=== PATIENT | male | born 1935 | race Hispanic/Latino ===

== ENCOUNTER 2019-04-16 14:46 | Inpatient (IN) | payer OTHER ==
[~2019-04-16] VITALS: Ht 172.7 cm; Wt 69.0 kg
--- OUTSIDE RECORDS SUMMARY | 2019-04-16 14:47 | XMS REPORT | Clinical Summary ---
Author Author [facility] Organization [facility] Address Unknown Phone Unavailable Care Team Providers Care Correctional Nurse Name Role Phone Asked, None Given PCP Unavailable Allergies No Known Allergies Medications End Date Status Medication Sig Dispensed Refills Start Date Active atorvastatin (LIPITOR) 20 0 MG tablet 6 Active CONTOUR TEST STRIPS strip 0 test strips 6 Active TRUEPLUS LANCETS 28 gauge 0 misc 6 Active levothyroxine (SYNTHROID, 0 LEVOTHROID) 125 MCG 6 tablet Active lisinopril-hydrochlorothi 0 azide 6 (PRINZIDE,ZESTORETIC) 20-12.5 mg per tablet Active metFORMIN (GLUCOPHAGE) 0 500 MG tablet 6 Active tamsulosin (FLOMAX) 0.4 0 mg capsule,extended 6 release 24hr Active Problems Problem Noted Date 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 Last Filed Vital Signs Not on file Plan of Treatment Health Maintenance Due Date Last Done Comments SHINGLES VACCINES (#1) 11/26/1983 65+ PNEUMOCOCCAL VACCINE 1998 (1 of 2 - PCV13) INFLUENZA VACCINE 04/09/2019 Results Not on fileafter 04/15/2018 Insurance Type Payer Benefit Subscriber ID Effective Phone Address Plan / Dates Group HMO [employer] TEXAN[employer]US xxxxxxxxx 2010-P MCR resent Advance Directives Patient has advance care planning documents on file. For more information, lupillo e contact: Guanakito Tan [address] [place] [address]
--- OUTSIDE RECORDS SUMMARY | 2019-04-16 14:48 | XMS REPORT | Summary of Care ---
Author Author [facility] Organization [facility] Address Unknown Phone Unavailable Encounter KRYSTIN Agosto(DRAKE) [id number] Date(s): 02/14/17 - 02/16/17 [facility] [address] [place] [address]- [phone] Discharge Disposition: Home or Self Care Attending Physician: Geovanni Barnett MD Admitting Physician: Geovanni Barnett MD Vital Signs 1 2 3 Most recent to oldest [Reference Range]: 170.18 cm (02/15/17 6:12 AM) 170.18 cm (02/14/17 7:36 PM) Height 71.045 kg (02/15/17 6:15 AM) Current Weight 97.9 DegF (02/16/17 11:24 AM) 98.4 DegF (02/16/17 7:30 AM) 98.5 DegF (02/16/17 4:00 AM) Temperature Oral [96.4-99.1 DegF] 149/69 mmHg *HI* (02/16/17 12:49 PM) 157/80 mmHg *HI* (02/16/17 11:24 AM) 177/77 mmHg *HI* (02/16/17 7:30 AM) Blood Pressure [90-140/60-90 mmHg] 20 BRMIN (02/16/17 11:24 AM) 18 BRMIN (02/16/17 7:30 AM) 16 BRMIN (02/16/17 4:00 AM) Respiratory Rate [14-20 BRMIN] 101 bpm *HI* (02/16/17 12:49 PM) 94 bpm (02/16/17 11:24 AM) 90 bpm (02/16/17 7:30 AM) Peripheral Pulse Rate [60-100 bpm] 71.045 kg (02/15/17 6:12 AM) 71.364 kg (02/14/17 7:36 PM) Weight 24.53 m2 (02/15/17 6:12 AM) 24.64 m2 (02/14/17 7:36 PM) Body Mass Index Problem List Condition Effective Dates Status Health Status Informant Diabetes(Confirmed) Resolved HTN Resolved (hypertension)(Confi rmed) Hypothyroidism(Confi Resolved rmed) Allergies, Adverse Reactions, Alerts Substance Reaction Severity Status NKDA Active Medications acetaminophen 650 mg, 2 tab, Route: PO, Drug form: TAB, Q4H, Dosing Weight 71.045, kg, PRN Rudy n 1-3/Temp > 100.4 F, Start date: 02/15/17 8:55:00 CDT, Duration: 30 day, Stop date: 03/17/17 8:54:00 CDT Notes: Do not exceed 4 gm/day. (Same as: Tylenol) Start Date: 02/15/17 Stop Date: 02/16/17 Status: Discontinued atorvastatin 20 mg, 2 tab, Route: PO, Drug form: TAB, Bedtime, Dosing Weight 71.045, kg, Star t date: 02/15/17 21:00:00 CDT, Duration: 30 day, Stop date: 03/16/17 21:00:00 CD T Notes: (Same As: Lipitor) Start Date: 02/15/17 Stop Date: 02/16/17 Status: Discontinued Dextrose 50% Syringe 25 gm, 50 mL, Route: IVP, Drug Form: INJ, Dosing Weight 71.045, kg, PRN, PRN Blo od Glucose Results, Start date: 02/15/17 8:56:00 CDT, Duration: 30 day, Stop keke e: 03/17/17 8:55:00 CDT Start Date: 02/15/17 Stop Date: 02/16/17 Status: Discontinued Dextrose 50% Syringe 12.5 gm, 25 mL, Route: IVP, Drug Form: INJ, Dosing Weight 71.045, kg, PRN, PRN B lood Glucose Results, Start date: 02/15/17 8:56:00 CDT, Duration: 30 day, Stop d ate: 03/17/17 8:55:00 CDT Start Date: 02/15/17 Stop Date: 02/16/17 Status: Discontinued ferrous sulfate 325 mg, 1 tab, Route: PO, Drug form: ECTAB, Daily, Dosing Weight 71.045, kg, Sta rt date: 02/15/17 9:00:00 CDT, Duration: 30 day, Stop date: 03/16/17 9:00:00 CDT Notes: Give with food. "Do Not Crush" Start Date: 02/15/17 Stop Date: 02/16/17 Status: Discontinued Flomax 0.4 mg, 1 cap, Route: PO, Drug form: CAP, Daily, Dosing Weight 71.045, kg, Start date: 02/15/17 9:00:00 CDT, Duration: 30 day, Stop date: 03/16/17 9:00:00 CDT Notes: (Same As: Flomax) "Do Not Crush" Start Date: 02/15/17 Stop Date: 02/16/17 Status: Discontinued glucagon 1 mg, Route: IM, Drug form: PDR/INJ, PRN, Dosing Weight 71.045, kg, PRN Blood Gl ucose Results, Start date: 02/15/17 8:56:00 CDT, Duration: 30 day, Stop date: 8:55:00 CDT Start Date: 02/15/17 Stop Date: 02/16/17 Status: Discontinued heparin 5,000 unit, 1 mL, Route: SUB-Q, Drug form: INJ, Q8H, Dosing Weight 71.045, kg, S tart date: 02/15/17 16:00:00 CDT, Duration: 30 day, Stop date: 03/17/17 8:00:00 CDT Notes: porcine heparin Start Date: 02/15/17 Stop Date: 02/16/17 Status: Discontinued hydrALAZINE 10 mg, 0.5 mL, Route: IVP, Drug form: INJ, Q4H, Dosing Weight 71.045, kg, PRN El evated BP, if sbp > 160, Start date: 02/16/17 11:29:00 CDT, Duration: 30 day, Stop date: 03/18/17 11:28:00 CDT Notes: (Same as: Apresoline)Push over 5 minutes Start Date: 02/16/17 Stop Date: 02/16/17 Status: Discontinued hydrochlorothiazide-lisinopril 12.5 mg-20 mg oral tablet 1 tab, PO, Daily, # 30 tab, 0 Refill(s) Start Date: 02/15/17 Status: Ordered hydrochlorothiazide-lisinopril 12.5 mg-20 mg oral tablet 1 tab, Route: PO, Drug Form: TAB, Dosing Weight 71.045, kg, Daily, Start date: 0 02/15/17 9:00:00 CDT, Duration: 30 day, Stop date: 03/16/17 9:00:00 CDT Start Date: 02/15/17 Stop Date: 02/15/17 Status: Discontinued insulin aspart 3 unit, 0.03 mL, Route: SUB-Q, Drug form: SOLN, Bedtime, Dosing Weight 71.045, k g, PRN Blood Glucose Results, Start date: 02/15/17 8:56:00 CDT, Duration: 30 day , Stop date: 03/17/17 8:55:00 CDT Notes: Roll in palms of hands gently; Do not shake vigorously. (Same as: Orestes Kyle)"single patient use only"WASTE: F/P - Black; E - Municipal Trash Bin Stable f or 28 days at room temperature.Expires in days from Date Start Date: 02/15/17 Stop Date: 02/16/17 Status: Discontinued insulin aspart 2 unit, 0.02 mL, Route: SUB-Q, Drug form: SOLN, Bedtime, Dosing Weight 71.045, k g, PRN Blood Glucose Results, Start date: 02/15/17 8:56:00 CDT, Duration: 30 day , Stop date: 03/17/17 8:55:00 CDT Notes: Roll in palms of hands gently; Do not shake vigorously. (Same as: Orestes Kyle)"single patient use only"WASTE: F/P - Black; E - Municipal Trash Bin Stable f or 28 days at room temperature.Expires in days from Date Start Date: 02/15/17 Stop Date: 02/16/17 Status: Discontinued insulin aspart 1 unit, 0.01 mL, Route: SUB-Q, Drug form: SOLN, Bedtime, Dosing Weight 71.045, k g, PRN Blood Glucose Results, Start date: 02/15/17 8:56:00 CDT, Duration: 30 day , Stop date: 03/17/17 8:55:00 CDT Notes: Roll in palms of hands gently; Do not shake vigorously. (Same as: Orestes Kyle)"single patient use only"WASTE: F/P - Black; E - Municipal Trash Bin Stable f or 28 days at room temperature.Expires in days from Date Start Date: 02/15/17 Stop Date: 02/16/17 Status: Discontinued insulin aspart 4 unit, 0.04 mL, Route: SUB-Q, Drug form: SOLN, Bedtime, Dosing Weight 71.045, k g, PRN Blood Glucose Results, Start date: 02/15/17 8:56:00 CDT, Duration: 30 day , Stop date: 03/17/17 8:55:00 CDT Notes: Roll in palms of hands gently; Do not shake vigorously. (Same as: NovoPIPPA Kyle)"single patient use only"WASTE: F/P - Black; E - Municipal Trash Bin Stable f or 28 days at room temperature.Expires in days from Date Start Date: 02/15/17 Stop Date: 02/16/17 Status: Discontinued insulin aspart 6 unit, 0.06 mL, Route: SUB-Q, Drug form: SOLN, TID-Before Meals, Dosing Weight 71.045, kg, PRN Blood Glucose Results, Start date: 02/15/17 8:56:00 CDT, Duratio n: 30 day, Stop date: 03/17/17 8:55:00 CDT Notes: Roll in palms of hands gently; Do not shake vigorously. (Same as: Orestes Kyle)"single patient use only"WASTE: F/P - Black; E - Municipal Trash Bin Stable f or 28 days at room temperature.Expires in days from Date Start Date: 02/15/17 Stop Date: 02/16/17 Status: Discontinued insulin aspart 8 unit, 0.08 mL, Route: SUB-Q, Drug form: SOLN, TID-Before Meals, Dosing Weight 71.045, kg, PRN Blood Glucose Results, Start date: 02/15/17 8:56:00 CDT, Duratio n: 30 day, Stop date: 03/17/17 8:55:00 CDT Notes: Roll in palms of hands gently; Do not shake vigorously. (Same as: Orestes Kyle)"single patient use only"WASTE: F/P - Black; E - Municipal Trash Bin Stable f or 28 days at room temperature.Expires in days from Date Start Date: 02/15/17 Stop Date: 02/16/17 Status: Discontinued insulin aspart 10 unit, 0.1 mL, Route: SUB-Q, Drug form: SOLN, TID-Before Meals, Dosing Weight 71.045, kg, PRN Blood Glucose Results, Start date: 02/15/17 8:56:00 CDT, Duratio n: 30 day, Stop date: 03/17/17 8:55:00 CDT Notes: Roll in palms of hands gently; Do not shake vigorously. (Same as: Orestes Kyle)"single patient use only"WASTE: F/P - Black; E - Municipal Trash Bin Stable f or 28 days at room temperature.Expires in days from Date Start Date: 02/15/17 Stop Date: 02/16/17 Status: Discontinued insulin aspart 4 unit, 0.04 mL, Route: SUB-Q, Drug form: SOLN, TID-Before Meals, Dosing Weight 71.045, kg, PRN Blood Glucose Results, Start date: 02/15/17 8:56:00 CDT, Duratio n: 30 day, Stop date: 03/17/17 8:55:00 CDT Notes: Roll in palms of hands gently; Do not shake vigorously. (Same as: Orestes Kyle)"single patient use only"WASTE: F/P - Black; E - Municipal Trash Bin Stable f or 28 days at room temperature.Expires in days from Date Start Date: 02/15/17 Stop Date: 02/16/17 Status: Discontinued insulin aspart 2 unit, 0.02 mL, Route: SUB-Q, Drug form: SOLN, TID-Before Meals, Dosing Weight 71.045, kg, PRN Blood Glucose Results, Start date: 02/15/17 8:56:00 CDT, Duratio n: 30 day, Stop date: 03/17/17 8:55:00 CDT Notes: Roll in palms of hands gently; Do not shake vigorously. (Same as: Orestes yKle)"single patient use only"WASTE: F/P - Black; E - Municipal Trash Bin Stable f or 28 days at room temperature.Expires in days from Date Start Date: 02/15/17 Stop Date: 02/16/17 Status: Discontinued Levaquin 500 mg, Route: PO, Drug form: TAB, [id number], Dosing Weight 71.045, kg, Start date : 02/15/17 9:00:00 CDT, Duration: 14 day, Stop date: 02/28/17 9:00:00 CDT, ABX I ndication: Genital Tract Infection Start Date: 02/15/17 Stop Date: 02/15/17 Status: Discontinued Levaquin 750 mg, 150 mL, Route: IVPB, Drug form: SOLN, [id number], Dosing Weight 71.045, kg, Start date: 02/15/17 9:00:00 CDT, Duration: 14 day, Stop date: 02/25/17 12:00:00 CDT, ABX Indication: Skin/Soft Tissue Infection Notes: (Same as:Levaquin) Start Date: 02/15/17 Stop Date: 02/16/17 Status: Discontinued Levaquin 750 mg oral tablet 750 mg=1 tab, PO, Q24H, X 14 day, # 14 tab, 0 Refill(s) Start Date: 02/16/17 Stop Date: 03/02/17 Status: Ordered levothyroxine 125 microgram, 1 tab, Route: PO, Drug form: TAB, Daily, Dosing Weight 71.045, kg , Start date: 02/15/17 9:00:00 CDT, Duration: 30 day, Stop date: 03/17/17 6:30:0 0 CDT Notes: Take 1 hour before or 2 hours after meal; Enteral feeds may interefere wi th the absorption of this medication. (Same as:Levothroid) Start Date: 02/15/17 Stop Date: 02/16/17 Status: Discontinued levothyroxine 125 mcg (0.125 mg) oral tablet 125 microgram=1 tab, PO, Daily, # 30 tab, 0 Refill(s) Start Date: 02/15/17 Status: Ordered lisinopril 20 mg, 1 tab, Route: PO, Drug form: TAB, Daily, Dosing Weight 71.045, kg, Start date: 02/16/17 9:00:00 CDT, Duration: 30 day, Stop date: 03/17/17 9:00:00 CDT Notes: (Same as: Prinivil, Zestril) Start Date: 02/16/17 Stop Date: 02/16/17 Status: Discontinued lisinopril 20 mg, 4 tab, Route: PO, Drug form: TAB, Daily, Start date: 02/16/17 9:00:00 CDT , Duration: 30 day, Stop date: 03/17/17 9:00:00 CDT Notes: (Same as: Prinivil, Zestril) Start Date: 02/16/17 Stop Date: 02/15/17 Status: Canceled Motrin 800 mg, 1 tab, Route: PO, Drug form: TAB, Q8H, Dosing Weight 71.045, kg, PRN Rudy n Score 1-3, Start date: 02/15/17 8:55:00 CDT, Duration: 3 day, Stop date: 02/18 8:54:00 CDT Notes: (Same as: Motrin)"Do Not Crush" Take with food. Start Date: 02/15/17 Stop Date: 02/16/17 Status: Discontinued Motrin 600 mg oral tablet 600 mg=1 tab, PO, Q8H, PRN Pain, take with food, X 5 day, # 15 tab, 0 Refill(s) Start Date: 02/16/17 Stop Date: 02/21/17 Status: Ordered piperacillin-tazobactam + sodium chloride 0.9% INJ 100 mL 3.375 gm, Route: IVPB, ONCE, Dosing Weight 71.364, kg, Priority: STAT, Start keke e: 02/14/17 23:54:00 CDT, Duration: 1 doses or times, Stop date: 02/14/17 23:54: 00 CDT, ABX Indication: Skin/Soft Tissue Infection Notes: (Same as: Zosyn)Dosing based on Piperacillin component MEDICATION WA ELISEO Product Size: 3375 mgProduct Wasted: ___ mg Start Date: 02/14/17 Stop Date: 02/15/17 Status: Completed Saline Flush 0.9% 10 ml, Route: IVP, Drug Form: INJ, Dosing Weight 71.045, kg, PRN, PRN Line Flush , Start date: 02/15/17 8:55:00 CDT, Duration: 30 day, Stop date: 03/17/17 8:54:0 0 CDT Notes: Same as: BD Posiflush Sterile Start Date: 02/15/17 Stop Date: 02/16/17 Status: Discontinued Sodium Chloride 0.9% (Bolus) IV 1,000 mL, 1000 ml/hr, Infuse Over: 1 hr, Route: IV, 1,000, Drug form: INJ, ONCE, Priority: STAT, Dosing Weight 71.364 kg, Start date: 02/15/17 2:41:00 CDT, Dura tion: 1 doses or times, Stop date: 02/15/17 2:41:00 CDT Start Date: 02/15/17 Stop Date: 02/15/17 Status: Completed sodium chloride 0.9% 1000 ml INJ 1,000 mL 1,000 mL, Rate: 75 ml/hr, Infuse over: 13.3 hr, Route: IV, Dosing Weight 71.364 kg, Total Volume: 1,000, Priority: STAT, Start date: 02/15/17 4:47:00 CDT, Durat ion: 1 doses or times, Stop date: 02/15/17 18:04:00 CDT Start Date: 02/15/17 Stop Date: 02/15/17 Status: Completed sodium chloride 0.9% 1000 ml INJ 1,000 mL 1,000 mL, Rate: 75 ml/hr, Infuse over: 13.3 hr, Route: IV, Dosing Weight 71.045 kg, Total Volume: 1,000, Start date: 02/15/17 8:55:00 CDT, Duration: 30 day, Sto p date: 03/17/17 8:54:00 CDT Start Date: 02/15/17 Stop Date: 02/16/17 Status: Discontinued vancomycin + sodium chloride 0.9% INJ 250 mL 1,000 mg, Route: IVPB, ONCE, Dosing Weight 71.364, kg, Priority: STAT, Start keke e: 02/14/17 23:54:00 CDT, Duration: 1 doses or times, Stop date: 02/14/17 23:54: 00 CDT, ABX Indication: Skin/Soft Tissue Infection Notes: TIME CRITICAL MEDICATION(Same As: Vancocin)Infusion rate< 1000 mg: infuse over 1 [id number] - 1500 mg: infuse over 1.5 [id number] - 2000 mg: infuse over 2 hours> 2001 mg: infuse over 2.5 hours MEDICATION WASTE Product Size: 1000 mgProduct Wasted: ___ mg Start Date: 02/14/17 Stop Date: 02/15/17 Status: Completed Results ELECTROLYTES Most recent to 1 oldest [Reference Range]: Sodium Lvl [135-145 127 mEq/L mEq/L] *LOW* (02/15/17 1:21 AM) Potassium Lvl 4.3 mEq/L [3.5-5.1 mEq/L] (02/15/17 1:21 AM) Chloride Lvl [95-109 92 mEq/L mEq/L] *LOW* (02/15/17 1:21 AM) CO2 [24-32 mEq/L] 26 mEq/L (02/15/17 1:21 AM) AGAP [10.0-20.0 13.3 mEq/L mEq/L] (02/15/17 1:21 AM) CHEM PANEL Most recent to 1 oldest [Reference Range]: Creatinine Lvl 1.50 mg/dL [0.50-1.40 mg/dL] *HI* (02/15/17 1:21 AM) eGFR 42 mL/min/1.73m2 1 *NA* (02/15/17 1:21 AM) BUN [7-22 mg/dL] 25 mg/dL *HI* (02/15/17 1:21 AM) B/C Ratio [6-25] 17 (02/15/17 1:21 AM) Glucose Lvl [70-99 255 mg/dL mg/dL] *HI* (02/15/17 1:21 AM) Total Protein 7.8 g/dL [6.4-8.4 g/dL] (02/15/17 1:21 AM) Albumin Lvl [3.5-5.0 2.9 g/dL g/dL] *LOW* (02/15/17 1:21 AM) Globulin [2.7-4.2 4.9 g/dL g/dL] *HI* (02/15/17 1:21 AM) A/G Ratio [0.7-1.6] 0.6 *LOW* (02/15/17 1:21 AM) Calcium Lvl 8.9 mg/dL [8.5-10.5 mg/dL] (02/15/17 1:21 AM) ALT [0-65 unit/L] 9 unit/L (02/15/17 1:21 AM) AST [0-37 unit/L] 7 unit/L (02/15/17 1:21 AM) Alk Phos [39-136 114 unit/L unit/L] (02/15/17 1:21 AM) Bili Total [0.2-1.3 0.7 mg/dL mg/dL] (02/15/17 1:21 AM) Lactic Acid Lvl 1.1 mMol/L [0.5-2.2 mMol/L] (02/15/17 1:21 AM) 1Result Comment: The eGFR is calculated using the CKD-EPI formula. In most young, healthy individuals the eGFR will be >90 mL/min/1.73m2. The eGFR declines with age. An eGFR of 60-89 may be normal in some populations, particularly the elderly, for whom the CKD-EPI formula has not been extensively validated. Use of the eGFR is not recommended in the following populations: Individuals with unstable creatinine concentrations, including patients and those with serious co-morbid conditions. Patients with extremes in muscle mass or diet. The data above are obtained from the National Kidney Disease Education Program ( NKDEP) which additionally recommends that when the eGFR is used in patients with extremes of body mass index for purposes of drug dosing, the eGFR should be mul tiplied by the estimated BMI. SPECIAL CHEMISTRY Most recent to 1 oldest [Reference Range]: Hgb A1C [<=5.6 %] 8.0 % *HI* (02/16/17 4:18 AM) URINE AND STOOL Most recent to 1 oldest [Reference Range]: UA Turbidity [Clear] Slight *ABN* (02/14/17 11:33 PM) UA Color [Yellow] Yellow *NA* (02/14/17 11:33 PM) UA pH [5.0-8.0] 5.0 (02/14/17 11:33 PM) UA Spec Grav 1.009 [<=1.030] (02/14/17 11:33 PM) UA Glucose [Negative 50 mg/dL mg/dL] *ABN* (02/14/17 11:33 PM) UA Blood [Negative] Small *ABN* (02/14/17 11:33 PM) UA Ketones [Negative Negative mg/dL mg/dL] *NA* (02/14/17 11:33 PM) UA Protein [Negative 100 mg/dL mg/dL] *ABN* (02/14/17 11:33 PM) UA Urobilinogen <=1.0 mg/dL [0.1-1.0 mg/dL] *NA* (02/14/17 11:33 PM) UA Bili [Negative] Negative *NA* (02/14/17 11:33 PM) UA Leuk Est Large [Negative] *ABN* (02/14/17 11:33 PM) UA Nitrite Negative [Negative] (02/14/17 11:33 PM) UA WBC [0-5 /HPF] 179 /HPF *HI* (02/14/17 11:33 PM) UA RBC [0-2 /HPF] 10 /HPF *HI* (02/14/17 11:33 PM) UA Bacteria [None Occasional /HPF Seen /HPF] *NA* (02/14/17 11:33 PM) UA Sq Epi [Few /LPF] Occasional /LPF *NA* (02/14/17 11:33 PM) UA Mucus [None Seen Few /LPF /LPF] *NA* (02/14/17 11:33 PM) UA Trans Epi [<=0 4 /LPF /LPF] *HI* (02/14/17 11:33 PM) HEMATOLOGY Most recent to 1 oldest [Reference Range]: WBC [3.7-10.4 K/CMM] 13.3 K/CMM *HI* (02/15/17 1:21 AM) RBC [4.70-6.10 3.31 M/CMM M/CMM] *LOW* (02/15/17 1:21 AM) Hgb [14.0-18.0 g/dL] 10.0 g/dL *LOW* (02/15/17 1:21 AM) Hct [42.0-54.0 %] 29.3 % *LOW* (02/15/17 1:21 AM) MCV [80.0-94.0 fL] 88.6 fL (02/15/17 1:21 AM) MCH [27.0-31.0 pg] 30.2 pg (02/15/17 1:21 AM) MCHC [32.0-36.0 34.1 g/dL g/dL] (02/15/17 1:21 AM) RDW [11.5-14.5 %] 14.8 % *HI* (02/15/17 1:21 AM) Platelet [133-450 251 K/CMM K/CMM] (02/15/17 1:21 AM) MPV [7.4-10.4 fL] 7.7 fL (02/15/17 1:21 AM) Segs [45.0-75.0 %] 81.8 % *HI* (02/15/17 1:21 AM) Lymphocytes 8.4 % [20.0-40.0 %] *LOW* (02/15/17 1:21 AM) Monocytes [2.0-12.0 8.9 % %] (02/15/17 1:21 AM) Eosinophils [0.0-4.0 0.6 % %] (02/15/17 1:21 AM) Basophils [0.0-1.0 0.3 % %] (02/15/17 1:21 AM) Segs-Bands # 10.9 K/CMM [1.5-8.1 K/CMM] *HI* (02/15/17 1:21 AM) Lymphocytes # 1.1 K/CMM [1.0-5.5 K/CMM] (02/15/17 1:21 AM) Monocytes # [0.0-0.8 1.2 K/CMM K/CMM] *HI* (02/15/17 1:21 AM) Eosinophils # 0.1 K/CMM [0.0-0.5 K/CMM] (02/15/17 1:21 AM) PT [12.0-14.7 15.8 seconds seconds] *HI* (02/15/17 1:21 AM) INR [0.85-1.17] 1.23 *HI* (02/15/17 1:21 AM) PTT [22.9-35.8 40.2 seconds seconds] *HI* (02/15/17 1:21 AM) Immunizations Given and Recorded Vaccine Date Status Refusal Reason influenza virus vaccine, inactivated 07/25/16 Given Procedures Procedure Date Related Diagnosis Body Site Cholecystectomy Prostate manipulation Social History Social History Type Response Substance Abuse Use: None. Alcohol Past Smoking Status Former smoker; Number of years: 20; Exposure to Tobacco Smoke None; Cigarette Smoking Last 365 Days No; Reg Smoking Cessation Counseling No Assessment and Plan Extracted from: Title: UIP Progress Note * Author: Osvaldo Álvarez MD Date: 02/16/17 Impression and Plan ASSESSMENT: 1. Right testicular swelling and pain and possible orchitis and epididymitis. 2. Hyponatremia. 3. Diabetes mellitus type 2. 4. Hypertension. 5. Hypothyroidism. 6. BPH. 7. Hyperlipidemia. 8. Iron deficiency anemia. PLAN: Levaquin 14 days Motrin PRN for inflammation Insulin SS Chronic Hyponatremia asymptomatic Ferrous Sulfate Urology Consult appreciated Dispo: d/c today on Levaquin and f/u with Urology in 10 days Extracted from: Title: Urology Author: Bryce Almeida MD Date: 02/15/17 Impression and Plan 81 year old male with right epididymo-orchitis and UTI 1) scrotal u/s 2) recommend levaquin or cipro x 2 weeks, NSAIDs if okay with hospitalist to help with inflammation. Scrotal elevation while laying in bed. He has a Urologist follow up in 2 weeks and he can keep that appointment for follow up. f/u UCx. 3) check bladder scan post void residual to ensure complete emptying No further Urologic intervention at this time.
--- OUTSIDE RECORDS SUMMARY | 2019-04-16 14:48 | XMS REPORT | Continuity of Care Document ---
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 Basophils # 0.1 0.0 - 0.2 07/24/2016 [facility] HEMATOLOGY Monocytes 13.7 2.0 - 12.0 07/24/2016 [facility] HEMATOLOGY Lymphocytes # 1.5 1.0 - 5.5 07/24/2016 [facility] HEMATOLOGY Segs-Bands # 5.4 1.5 - 8.1 07/24/2016 [facility] HEMATOLOGY Lymphocytes 18.0 20.0 - 40.0 07/24/2016 [facility] HEMATOLOGY Segs 66.4 45.0 - 75.0 07/24/2016 [facility] HEMATOLOGY Basophils 1.0 0.0 - 1.0 07/24/2016 [facility] HEMATOLOGY Eosinophils 0.9 0.0 - 4.0 07/24/2016 [facility] URINE AND STOOL UA Color Yellow *NA* (03/02/15 5:01 PM) Yellow 03/02/2015 [facility] URINE AND STOOL UA Sq Epi Occasional /LPF Few /LPF 03/02/2015 [facility] URINE AND STOOL UA Leuk Est Trace *ABN* (03/02/15 5:01 PM) Negative 03/02/2015 [facility] URINE AND STOOL UA Turbidity Clear (03/02/15 5:01 PM) Clear 03/02/2015 [facility] URINE AND STOOL UA Bili Negative *NA* (03/02/15 5:01 PM) Negative 03/02/2015 [facility] URINE AND STOOL UA Blood Large *ABN* (03/02/15 5:01 PM) Negative 03/02/2015 [facility] URINE AND STOOL UA Urobilinogen 0.2 0.1 - 1.0 03/02/2015 [facility] URINE AND STOOL UA Nitrite Negative (03/02/15 5:01 PM) Negative 03/02/2015 [facility] URINE AND STOOL UA Spec Grav <=1.005 *NA* (03/02/15 5:01 PM) <=1.030 03/02/2015 [facility] URINE AND STOOL UA pH 5.5 5.0 - 8.0 03/02/2015 [facility] URINE AND STOOL UA Protein 30 mg/dL Negative mg/dL 03/02/2015 [facility] URINE AND STOOL UA Glucose Negative (03/02/15 5:01 PM) Negative 03/02/2015 [facility] URINE AND STOOL UA Ketones Negative *NA* (03/02/15 5:01 PM) Negative 03/02/2015 [facility] URINE AND STOOL UA Bacteria Occasional /HPF None Seen /HPF 03/02/2015 [facility] URINE AND STOOL UA RBC 92 0 - 2 03/02/2015 [facility] URINE AND STOOL UA WBC 8 0 - 5 03/02/2015 [facility] CHEM PANEL A/G Ratio 0.7 0.7 - 1.6 03/02/2015 [facility] CHEM PANEL Globulin 4.8 2.0 - 4.0 03/02/2015 [facility] CHEM PANEL B/C Ratio 17 6 - 25 03/02/2015 [facility] CHEM PANEL AGAP 13.5 10.0 - 20.0 03/02/2015 [facility] CHEM PANEL eGFR 56 03/02/2015 <sup>1</sup>Result Comment: The eGFR is calculated using the CKD-EPI formula. In most young, healthy individuals the eGFR will be >90 mL/min/1.73m2. The eGFR declines with age. An eGFR of 60-89 may be normal in some populations, particularly the elderly, for whom the CKD-EPI formula has not been extensively validated. Use of the eGFR is not recommended in the following populations:& lt;br/>
Individuals with unstable creatinine concentrations, including patients and those with serious co-morbid conditions.

Patients with extremes in muscle mass or diet.

The data above are obtained from the National Kidney Disease Education Program (NKDEP) which additionally recommends that when the eGFR is used in patients with extremes of body mass index for purposes of drug dosing, the eGFR should be multiplied by the estimated BMI. [facility] CHEM PANEL Sodium Lvl 134 135 - 145 03/02/2015 [facility] CHEM PANEL Potassium Lvl 4.5 3.5 - 5.1 03/02/2015 [facility] CHEM PANEL Chloride Lvl 102 95 - 109 03/02/2015 [facility] CHEM PANEL Creatinine Lvl 1.2 0.5 - 1.4 03/02/2015 [facility] CHEM PANEL Albumin Lvl 3.5 3.5 - 5.0 03/02/2015 [facility] CHEM PANEL Total Protein 8.3 6.4 - 8.4 03/02/2015 [facility] CHEM PANEL Calcium Lvl 8.5 8.5 - 10.5 03/02/2015 [facility] CHEM PANEL CO2 23 24 - 32 03/02/2015 [facility] CHEM PANEL BUN 20 7 - 22 03/02/2015 [facility] CHEM PANEL Glucose Lvl 121 70 - 99 03/02/2015 <sup>2</sup>Interpretive Data: Adult reference range values reflect the clinical guidelines
of the [place] [employer]. [facility] CHEM PANEL ALT 10 0 - 65 03/02/2015 [facility] CHEM PANEL Bili Total 0.3 0.2 - 1.3 03/02/2015 [facility] CHEM PANEL Alk Phos 109 39 - 136 03/02/2015 [facility] CHEM PANEL AST 12 0 - 37 03/02/2015 [facility] HEMATOLOGY PTT 39.9 22.9 - 35.8 03/02/2015 <sup>4</sup>Interpretive Data: Heparin Therapeutic Range: 57 - [address] [facility] INR 1.11 0.85 - 1.17 03/02/2015 <sup>3</sup>Interpretive Data: RECOMMENDED RANGES FOR PROTIME INR:
2.0-3.0 for most medical and surgical thromboembolic states.
2.5-3.5 for artificial heart valves and recurrent embolism.

INR SHOULD BE USED ONLY FOR PATIENTS ON STABLE ANTICOAGULANT THERAPY. [facility] PT 14.4 12.0 - 14.7 03/02/[address] [facility] RBC 3.31 4.70 - 6.10 03/02/[address] [facility] Hgb 10.0 14.0 - 18.0 03/02/[address] [facility] WBC 5.9 3.7 - 10.4 03/02/[address] [facility] MCV 87.5 80.0 - 94.0 03/02/[address] [facility] MCH 30.3 27.0 - 31.0 03/02/[address] [facility] Hct 29.0 42.0 - 54.0 03/02/[address] [facility] MCHC 34.7 32.0 - 36.0 03/02/[address] [facility] Platelet 216 133 - 450 03/02/[address] [facility] RDW 14.4 11.5 - 14.5 03/02/[address] [facility] MPV 7.6 7.4 - 10.4 03/02/[address] [facility] Segs 67.6 45.0 - 75.0 03/02/[address] [facility] Lymphocytes 20.2 20.0 - 40.0 03/02/[address] [facility] Monocytes 10.5 2.0 - 12.0 03/02/[address] [facility] Eosinophils 0.7 0.0 - 4.0 03/02/[address] [facility] Basophils 1.0 0.0 - 1.0 03/02/[address] [facility] Segs-Bands # 4.0 1.5 - 8.1 03/02/[address] [facility] Lymphocytes # 1.2 1.0 - 5.5 03/02/[address] [facility] Basophils # 0.1 0.0 - 0.2 03/02/[address] [facility] Monocytes # 0.6 0.0 - 0.8 03/02/2015 [facility] URINE AND STOOL UA Color Red 12/18/2014 [facility] URINE AND STOOL UA Urobilinogen <=1.0 mg/dL 0.1 - 1.0 12/18/2014 [facility] URINE AND STOOL UA Sq Epi None Seen 12/18/2014 [facility] URINE AND STOOL UA RBC >182 0 - 2 12/18/2014 [facility] URINE AND STOOL UA Bacteria Occasional /HPF None Seen /HPF 12/18/2014 [facility] URINE AND STOOL UA WBC >182 0 - 5 12/18/2014 [facility] URINE AND STOOL UA Leuk Est Small *ABN* (12/18/14 11:02 AM) Negative 12/18/2014 [facility] URINE AND STOOL UA Spec Grav 1.006 <=1.030 12/18/2014 [facility] URINE AND STOOL UA Turbidity Marked *ABN* (12/18/14 11:02 AM) Clear 12/18/2014 [facility] URINE AND STOOL UA Nitrite Negative (12/18/14 11:02 AM) Negative 12/18/2014 [facility] URINE AND STOOL UA Blood Large *ABN* (12/18/14 11:02 AM) Negative 12/18/2014 [facility] URINE AND STOOL UA Bili Negative *NA* (12/18/14 11:02 AM) Negative 12/18/2014 [facility] URINE AND STOOL UA Ketones Negative mg/dL Negative mg/dL 12/18/2014 [facility] URINE AND STOOL UA Protein 100 mg/dL Negative mg/dL 12/18/2014 [facility] URINE AND STOOL UA Glucose Negative mg/dL Negative mg/dL 12/18/2014 [facility] URINE AND STOOL UA pH 6.0 5.0 - 8.0 12/18/2014 [facility] ELECTROLYTES AGAP 12.1 10.0 - 20.0 12/18/2014 [facility] ELECTROLYTES eGFR 51 12/18/2014 <sup>1</sup>Result Comment: The eGFR is calculated using the CKD-EPI formula. In most young, healthy individuals the eGFR will be >90 mL/min/1.73m2. The eGFR declines with age. An eGFR of 60-89 may be normal in some populations, particularly the elderly, for whom the CKD-EPI formula has not been extensively validated. Use of the eGFR is not recommended in the following populations:& lt;br/>
Individuals with unstable creatinine concentrations, including patients and those with serious co-morbid conditions.

Patients with extremes in muscle mass or diet.

The data above are obtained from the National Kidney Disease Education Program (NKDEP) which additionally recommends that when the eGFR is used in patients with extremes of body mass index for purposes of drug dosing, the eGFR should be multiplied by the estimated BMI. [facility] ELECTROLYTES Glucose Lvl 153 70 - 99 12/18/2014 <sup>2</sup>Interpretive Data: Adult reference range values reflect the clinical guidelines
of the [place] [employer]. [facility] ELECTROLYTES Creatinine Lvl 1.3 0.5 - 1.4 12/18/2014 [facility] ELECTROLYTES BUN 19 7 - 22 12/18/2014 [facility] ELECTROLYTES Chloride Lvl 96 95 - 109 12/18/2014 [facility] ELECTROLYTES Potassium Lvl 4.1 3.5 - 5.1 12/18/2014 [facility] ELECTROLYTES Sodium Lvl 127 135 - 145 12/18/2014 [facility] ELECTROLYTES CO2 23 24 - 32 12/18/2014 [facility] ELECTROLYTES Calcium Lvl 8.9 8.5 - 10.5 12/18/2014 [facility] HEMATOLOGY Basophils 0.7 0.0 - 1.0 12/18/2014 [facility] HEMATOLOGY Eosinophils 0.3 0.0 - 4.0 12/18/2014 [facility] HEMATOLOGY Lymphocytes 18.6 20.0 - 40.0 12/18/[address] [facility] Monocytes 8.0 2.0 - 12.0 12/18/2014 [facility] HEMATOLOGY Segs 72.4 45.0 - 75.0 12/18/2014 [facility] HEMATOLOGY Monocytes # 0.7 0.0 - 0.8 12/18/[address] [facility] Lymphocytes # 1.5 1.0 - 5.5 12/18/[address] [facility] Segs-Bands # 6.0 1.5 - 8.1 12/18/2014 [facility] HEMATOLOGY Basophils # 0.1 0.0 - 0.2 12/18/[address] [facility] PTT 34.0 22.9 - 35.8 12/18/2014 <sup>4</sup>Interpretive Data: Heparin Therapeutic Range: 57 - 92 Seconds [facility] HEMATOLOGY PT 14.0 12.0 - 14.7 12/18/[address] [facility] INR 1.08 0.85 - 1.17 12/18/2014 <sup>3</sup>Interpretive Data: RECOMMENDED RANGES FOR PROTIME INR:
2.0-3.0 for most medical and surgical thromboembolic states.
2.5-3.5 for artificial heart valves and recurrent embolism.

INR SHOULD BE USED ONLY FOR PATIENTS ON STABLE ANTICOAGULANT THERAPY. [facility] HEMATOLOGY Hct 30.6 42.0 - 54.0 12/18/2014 [facility] HEMATOLOGY Hgb 10.2 14.0 - 18.0 12/18/2014 [facility] HEMATOLOGY MCV 88.4 80.0 - 94.0 12/18/[address] [facility] MCHC 33.4 32.0 - 36.0 12/18/[address] [facility] MCH 29.5 27.0 - 31.0 12/18/2014 [facility] HEMATOLOGY Platelet 182 133 - 450 12/18/2014 [facility] HEMATOLOGY RDW 14.3 11.5 - 14.5 12/18/[address] [facility] MPV 8.3 7.4 - 10.4 12/18/[address] [facility] WBC 8.3 3.7 - 10.4 12/18/[address] [facility] RBC 3.47 4.70 - 6.10 12/18/2014 [facility] CHEMISTRY Chloride Lvl 101 95 - 109 12/23/2011 [facility] CHEMISTRY CO2 26 24 - 32 12/23/2011 Normal [facility] CHEMISTRY Calcium Lvl 8.6 8.5 - 10.5 12/23/2011 Normal [facility] CHEMISTRY Glucose Lvl 205 70 - 99 12/23/2011 [facility] <sup>1</sup>Interpretive Data: Adult reference range values reflect the clinical guidelines of the [place] [employer]. [facility] CHEMISTRY BUN 23 7 - 22 12/23/2011 [facility] CHEMISTRY Sodium Lvl 138 135 - 145 12/23/2011 Normal [facility] CHEMISTRY Potassium Lvl 4.2 3.5 - 5.1 12/23/2011 Normal [facility] CHEMISTRY Creatinine Lvl 1.5 0.5 - 1.4 12/23/2011 [facility] CHEMISTRY AGAP 15.2 10.0 - 20.0 12/23/2011 Normal [facility] HEMATOLOGY PTT 41.7 22.9 - 35.8 12/23/2011 [facility] <sup>3</sup>Interpretive Data: Heparin Therapeutic Range: 57 - 92 Seconds [facility] HEMATOLOGY PT 13.4 12.0 - 14.7 12/23/2011 Normal [facility] HEMATOLOGY INR 1.02 0.85 - 1.17 12/23/2011 [facility] <sup>2</sup>Interpretive Data: RECOMMENDED RANGES FOR PROTIME INR: 2.0-3.0 for most medical and surgical thromboembolic states. 2.5-3.5 for artificial heart valves and recurrent embolism. INR SHOULD BE USED ONLY FOR PATIENTS ON STABLE ANTICOAGULANT THERAPY. [facility] HEMATOLOGY MPV 8.7 7.4 - 10.4 12/23/2011 Normal [facility] HEMATOLOGY Platelet 199 133 - 450 12/23/2011 [facility] HEMATOLOGY Hct 28.1 42.0 - 54.0 12/23/2011 [facility] HEMATOLOGY MCV 85.5 80.0 - 94.0 12/23/2011 [facility] HEMATOLOGY RDW 14.3 11.5 - 14.5 12/23/2011 Normal [facility] HEMATOLOGY MCHC 33.3 32.0 - 36.0 12/23/2011 [facility] HEMATOLOGY MCH 28.4 27.0 - 31.0 12/23/2011 [facility] HEMATOLOGY Hgb 9.4 14.0 - 18.0 12/23/2011 [facility] HEMATOLOGY RBC 3.29 4.70 - 6.10 12/23/2011 [facility] HEMATOLOGY WBC 8.1 3.7 - 10.4 12/23/2011 Normal [facility] HEMATOLOGY Monocytes # 0.7 0.0 - 0.8 12/23/2011 [facility] HEMATOLOGY Segs-Bands # 6.1 1.5 - 8.1 12/23/2011 [facility] HEMATOLOGY Lymphocytes # 1.1 1.0 - 5.5 12/23/2011 [facility] HEMATOLOGY Lymphocytes 13.1 20.0 - 40.0 12/23/2011 [facility] HEMATOLOGY Monocytes 8.9 2.0 - 12.0 12/23/2011 [facility] HEMATOLOGY Segs 76.1 45.0 - 75.0 12/23/2011 [facility] HEMATOLOGY Eosinophils # 0.1 0.0 - 0.5 12/23/2011 Normal [facility] HEMATOLOGY Basophils # 0.1 0.0 - 0.2 12/23/2011 Normal [facility] HEMATOLOGY Basophils 0.9 0.0 - 1.0 12/23/2011 Normal [facility] HEMATOLOGY Eosinophils 1.0 0.0 - 4.0 12/23/2011 Normal [facility] Pathology Reports No Data Provided for This Section Diagnostic Reports Report Value Date Source Scrotal/Testicle w Doppler US SCROTAL ULTRASOUND: HISTORY: Right scrotal pain and swelling. FINDINGS: The right testicle is 4.0 cm in length and 2.6 x 3.1 cm in transverse dimension. The left testicle is 4.1 cm in length and 1.9 x 3.2 cm in transverse dimension. There is normal homogeneous echotexture of both testicles without evidence of masses. There is normal color flow and arterial Doppler signal present in both testicles. There is a moderate size complex hydrocele on the right with septations in the fluid and mild soft tissue thickening involving the scrotal wall and testicle. The epididymis is enlarged and heterogeneous with a 1.1 cm complex cyst in the head of the right epididymis. There is a minimal uncomplicated left hydrocele. The left epididymis appears slightly heterogeneous without significant enlargement. IMPRESSION: Right epididymitis with complex right hydrocele. [id number] 02/15/2017 [facility] ED Abdomen/Pelvis IV contrast only CT CT ABDOMEN AND PELVIS WITH CONTRAST DATED 02/15/2017. CLINICAL INDICATION: Right groin pain. Scrotal swelling and induration. COMPARISON: CT abdomen dated 07/24/2016. TECHNIQUE: A CT of the abdomen and pelvis was performed using helical images from the thoracic outlet through the pubic symphysis after the intravenous administration of 100 mL Visipaque 320. The study was ordered without bowel contrast. Sagittal and coronal reconstructions were performed. Delayed postcontrast images were obtained. CT Radiation Dose: [id number] [id number] FINDINGS: SOLID ORGANS: No acute CT abnormalities of the liver, spleen, pancreas, adrenal glands or kidneys are detected. There is no CT evidence of acute renal collecting system obstruction or calcified renal collecting system stone. Bilateral renal cortical scarring is noted, left greater than right. Mild nonspecific stranding is noted in the perinephric fat bilaterally. BILIARY: The patient is status post cholecystectomy. Mild prominence of the common bile duct is stable compared the prior study and likely represents postcholecystectomy ectasia. BOWEL: Bowel assessment is limited by the absence of bowel contrast. A left inguinal hernia is again identified to contain a segment of the proximal sigmoid colon without evidence of obstruction or strangulation. Numerous colonic diverticula are present without CT evidence of acute diverticulitis. No small bowel dilatation is identified to suggest obstruction. The appendix is visualized and does not appear acutely inflamed. PERITONEUM: No free intraperitoneal air or significant free intraperitoneal fluid. RETROPERITONEUM: The abdominal aorta is normal in caliber. Fusiform enlargement of the right common iliac artery appears stable with a diameter of 2 cm. No retroperitoneal mass. Subcentimeter lymph nodes are identified. In the para- aortic and aortocaval retroperitoneum. PELVIS: The bladder wall appears circumferentially thickened. The delayed postcontrast images demonstrate nonspecific thickening of the scrotal wall. Lymph nodes are identified in both inguinal regions the majority of which are not pathologic based on size criteria. A lymph node with a short axis diameter of 15 mm is identified in the right inguinal region that has increased in prominence when compared to the preceding study. LOWER CHEST: The lung bases appear clear of acute disease. ADDITIONAL COMMENTS: None. IMPRESSION: 1. No acute CT abnormalities of the abdomen or pelvis are detected. 2. A left inguinal hernia is again identified to contain a segment of the proximal sigmoid colon without evidence of obstruction or strangulation. 3. Diverticulosis without CT evidence of acute diverticulitis. 4. 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 5. Circumferential thickening of the bladder wall. A similar finding was noted on the preceding study. This may represent bladder wall hypertrophy due to outlet obstruction. Cystitis and uroepithelial neoplasm would be included in differential diagnosis. 6. Nonspecific thickening of the skin of the scrotal wall. The associated finding of multiple lymph nodes in the inguinal regions may indicate cellulitis with reactive lymph node prominence. 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 abdominal pain, elevated creatinine. pt c/o pain to left side of chest, pain radiates to back COMPARISON: None TECHNIQUE: Helical imaging was performed diaphragm through the symphysis with multiplanar reformations obtained without IV contrast. FINDINGS: LOWER CHEST: Bibasilar atelectasis. Coronary artery calcifications, minimal pericardial fluid. ABDOMEN: No free air. LIVER: Normal. BILIARY TREE: Normal. GALLBLADDER: Surgically absent. PANCREAS: Normal. SPLEEN: Normal. ADRENALS: Normal. KIDNEYS: No hydronephrosis or renal stones. Nonspecific bilateral perinephric stranding. PELVIS: No ureterolithiasis. Mild bladder distention. Prostate gland enlargement. Left inguinal hernia measures 5.4 cm x 3.9 cm x 8.7 cm CC. This contains a portion of the sigmoid colon. Prostate gland enlargement. BOWEL: No small bowel obstruction. Moderate sigmoid diverticulosis. Normal appendix. PERITONEUM: No free intraperitoneal fluid. RETROPERITONEUM: No aortic aneurysm. MUSCULOSKELETAL: Thoracic and lumbar spurring. Bilateral femoral acetabular joint osteoarthritic change. IMPRESSION: 1. Left inguinal hernia containing a portion of the colon. 2. Sigmoid diverticulosis. 3. Postcholecystectomy. 4. Coronary artery calcifications. Minimal pericardial fluid. 5. Normal appendix. 6. Mild prostate gland enlargement. 7. Nonspecific perinephric stranding, correlation for pyelonephritis is recommended. SL: [id number]-PC 07/24/2016 [facility] Chest 2 views DX EXAM: XR CHEST 2 VIEW DATE: 07/23/2016 7:30 PM FILM SOUND COORDINATOR INDICATION: Chest pain COMPARISON: December 23, 2011 TECHNIQUE: PA and lateral views of the chest were obtained. FINDINGS: There is an ill-defined opacity overlying the right lower lung field. The cardiac silhouette is not enlarged. The costophrenic recesses are sharp and without effusion. A chronic right acromioclavicular joint separation as well as severe degenerative changes of the left acromioclavicular joint are redemonstrated. Additional degenerative changes of the thoracic spine are visualized. IMPRESSION: Ill-defined opacity overlying the right lower lung field may represent either a developing infection or subsegmental atelectasis. SL: [id number] 07/23/2016 [facility] Consultation Notes No Data Provided for This Section Discharge Summaries No Data Provided for This Section History and Physicals No Data Provided for This Section Vital Signs Vital Sign Value Date Comments Source Heart Rate 101 02/16/2017 [facility] Systolic (mm Hg) 149 02/16/2017 [facility] Diastolic (mm Hg) 69 02/16/2017 [facility] Systolic (mm Hg) 157 02/16/2017 [facility] Diastolic (mm Hg) 80 02/16/2017 [facility] Respitory Rate 20 02/16/2017 [facility] Heart Rate 94 02/16/2017 [facility] Temperature Oral (F) 97.9 F 02/16/2017 [facility] Heart Rate 90 02/16/2017 [facility] Systolic (mm Hg) 177 02/16/2017 [facility] Diastolic (mm Hg) 77 02/16/2017 [facility] Temperature Oral (F) 98.4 F 02/16/2017 [facility] Respitory Rate 18 02/16/2017 [facility] Respitory Rate 16 02/16/2017 [facility] Temperature Oral (F) 98.5 F 02/16/2017 [facility] BMI Calculated 24.53 02/15/2017 [facility] Height 170.18 cm 02/15/2017 [facility] Weight 71.045 02/15/2017 [facility] Height 170.18 cm 02/15/2017 [facility] BMI Calculated 24.64 02/15/2017 [facility] Weight 71.364 02/15/2017 [facility] Respitory Rate 18 07/25/2016 [facility] Systolic (mm Hg) 131 07/25/2016 [facility] Diastolic (mm Hg) 83 07/25/2016 [facility] Heart Rate 71 07/25/2016 [facility] Temperature Oral (F) 98.5 F 07/25/2016 [facility] Respitory Rate 18 07/25/2016 [facility] Temperature Oral (F) 98.2 F 07/25/2016 [facility] Heart Rate 77 07/25/2016 [facility] Systolic (mm Hg) 129 07/25/2016 [facility] Diastolic (mm Hg) 70 07/25/2016 [facility] Respitory Rate 16 07/25/2016 [facility] Systolic (mm Hg) 161 07/25/2016 [facility] Diastolic (mm Hg) 83 07/25/2016 [facility] Temperature Oral (F) 97.7 F 07/25/2016 [facility] Heart Rate 87 07/25/2016 [facility] Weight 71.364 07/24/2016 [facility] BMI Calculated 24.64 07/24/2016 [facility] Height 170.18 cm 07/24/2016 [facility] Systolic (mm Hg) 130 03/02/2015 [facility] Diastolic (mm Hg) 76 03/02/2015 [facility] Heart Rate 69 03/02/2015 [facility] Respitory Rate 18 03/02/2015 [facility] Temperature Oral (F) 97 F 03/02/2015 [facility] Systolic (mm Hg) 153 03/02/2015 [facility] Diastolic (mm Hg) 70 03/02/2015 [facility] Heart Rate 74 03/02/2015 [facility] Respitory Rate 19 03/02/2015 [facility] Systolic (mm Hg) 141 03/02/2015 [facility] Diastolic (mm Hg) 70 03/02/2015 [facility] Respitory Rate 17 03/02/2015 [facility] Heart Rate 78 03/02/2015 [facility] Weight 70.455 03/02/2015 [facility] BMI Calculated 24.33 03/02/2015 [facility] Temperature Oral (F) 98.6 F 03/02/2015 [facility] Height 170.18 cm 03/02/2015 [facility] Systolic (mm Hg) 149 12/18/2014 [facility] Diastolic (mm Hg) 71 12/18/2014 [facility] Temperature Oral (F) 98.0 F 12/18/2014 [facility] Respitory Rate 17 12/18/2014 [facility] Respitory Rate 17 12/18/2014 [facility] Systolic (mm Hg) 127 12/18/2014 [facility] Diastolic (mm Hg) 89 12/18/2014 [facility] Heart Rate 99 12/18/2014 [facility] Respitory Rate 18 12/18/2014 [facility] Systolic (mm Hg) 153 12/18/2014 [facility] Diastolic (mm Hg) 70 12/18/2014 [facility] Weight 67.273 12/18/2014 [facility] BMI Calculated 23.23 12/18/2014 [facility] Height 170.18 cm 12/18/2014 [facility] Temperature Oral (F) 97.8 F 12/18/2014 [facility] Heart Rate 106 12/18/2014 [facility] Height 172.72 cm 09/16/2012 [facility] Weight 72.727 09/16/2012 [facility] Weight 80.000 12/23/2011 [facility] Height 172.72 cm 12/23/2011 [facility] Encounters Location Location Details Encounter Type Encounter Number Reason For Visit Attending Provider ADM Date DC Date Status Source [facility] Emergency [id number] GRIFFIN ALMANZA 12/23/2011 12/23/2011 Discharged [facility] Emergency [id number] FIFI KARLEE 09/16/2012 09/16/2012 Discharged [facility] [id number] Tripp Rob 12/18/2014 12/18/2014 [facility] [id number] Yany Anderson 03/02/2015 03/03/2015 [facility] Inpatient [id number] Geovanni Godinez 07/24/2016 07/25/2016 [facility] Inpatient [id number] Geovanni Godinez 02/15/2017 02/16/2017 [facility] Procedures Procedure Code Date Perfomer Comments Source Cholecystectomy [id number] [facility] Prostate manipulation [id number] [facility] Assessment and Plan Assessment and Plan Date Source Extracted from:Title: UIP Progress Note * Author: Osvaldo Álvarez [...] f/u with Urology in 10 days Extracted from:Title: Urology Author: Bryce Almeida MD Date: 02/15/17 [...] No further Urologic intervention at this time. 02/16/2017 [facility] Plan of Care No Data Provided for This Section Social History Social History Date Source Social History TypeResponse Substance Abuse Use: None. Alcohol Past Smoking Status Former smoker; Number of years: 20; Exposure to Tobacco Smoke None; Cigarette Smoking Last 365 Days No; Reg Smoking Cessation Counseling No 02/15/2017 [facility] Family History No Data Provided for This Section Advance Directives No Data Provided for This Section Functional Status No Data Provided for This Section
--- OUTSIDE RECORDS SUMMARY | 2019-04-16 14:48 | XMS REPORT | CCD ---
Author Author Auto Generated Organization [facility] Address Unknown Phone Unavailable Care Team Providers Care Aerospace Stress Engineer Name Role Phone Reji Santiago CP Allergies, Adverse Reactions, Alerts Substance Reaction Status NKDA Active Vital Signs Most recent to oldest [Reference Range]: 1 Height 172.72 cm (12/23/2011 12:00:00) Weight 80.000 kg (12/23/2011 12:00:00) Results CHEMISTRY Most recent to oldest [Reference Range]: 1 Sodium Lvl [135-145 mEq/L] 138 mEq/L (12/23/2011 14:15:00) Potassium Lvl [3.5-5.1 mEq/L] 4.2 mEq/L (12/23/2011 14:15:00) Chloride Lvl [95-109 mEq/L] 101 mEq/L (12/23/2011 14:15:00) CO2 [24-32 mEq/L] 26 mEq/L (12/23/2011 14:15:00) AGAP [10.0-20.0 mEq/L] 15.2 mEq/L (12/23/2011 14:15:00) Creatinine Lvl [0.5-1.4 mg/dL] 1.5 mg/dL *HI* (12/23/2011 14:15:00) BUN [7-22 mg/dL] 23 mg/dL *HI* (12/23/2011 14:15:00) Glucose Lvl [70-99 mg/dL] 205 mg/dL 1 *HI* (12/23/2011 14:15:00) Calcium Lvl [8.5-10.5 mg/dL] 8.6 mg/dL (12/23/2011 14:15:00) 1Interpretive Data: Adult reference range values reflect the clinical guidelinesof the [place] [employer]. HEMATOLOGY Most recent to oldest [Reference Range]: 1 WBC [3.7-10.4 K/CMM] 8.1 K/CMM (12/23/2011 14:15:00) RBC [4.70-6.10 M/CMM] 3.29 M/CMM *LOW* (12/23/2011 14:15:00) Hgb [14.0-18.0 g/dL] 9.4 g/dL *LOW* (12/23/2011 14:15:00) Hct [42.0-54.0 %] 28.1 % *LOW* (12/23/2011 14:15) MCV [80.0-94.0 fL] 85.5 fL (12/23/2011 14:15:00) MCH [27.0-31.0 pg] 28.4 pg (12/23/2011 14:15:00) MCHC [32.0-36.0 g/dL] 33.3 g/dL (12/23/2011 14:15:00) RDW [11.5-14.5 %] 14.3 % (12/23/2011 14:15:00) Platelet [133-450 K/CMM] 199 K/CMM (12/23/2011 14:15:00) MPV [7.4-10.4 fL] 8.7 fL (12/23/2011 14:15:00) Segs [45.0-75.0 %] 76.1 % *HI* (12/23/2011 14:15:) Lymphocytes [20.0-40.0 %] 13.1 % *LOW* (12/23/2011:15:) Monocytes [2.0-12.0 %] 8.9 % (12/23/2011 14:15:00) Eosinophils [0.0-4.0 %] 1.0 % (12/23/2011 14:15:00) Basophils [0.0-1.0 %] 0.9 % (12/23/2011 14:15:00) Segs-Bands # [1.5-8.1 K/CMM] 6.1 K/CMM (12/23/2011 14:15:00) Lymphocytes # [1.0-5.5 K/CMM] 1.1 K/CMM (12/23/2011 14:15:00) Monocytes # [0.0-0.8 K/CMM] 0.7 K/CMM (12/23/2011 14:15:00) Eosinophils # [0.0-0.5 K/CMM] 0.1 K/CMM (12/23/2011 14:15:00) Basophils # [0.0-0.2 K/CMM] 0.1 K/CMM (12/23/2011 14:15:00) PT [12.0-14.7 seconds] 13.4 seconds (12/23/2011 14:15:00) INR [0.85-1.17] 1.02 2 (12/23/2011 14:15:00) PTT [22.9-35.8 seconds] 41.7 seconds 3 *HI* (12/23/2011 14:15:00) 2Interpretive Data: RECOMMENDED RANGES FOR PROTIME INR: 2.0-3.0 for most medical and surgical thromboembolic states. 2.5-3.5 for artificial heart valves and recurrent embolism.INR SHOULD BE USED ONLY FOR PATIENTS ON STABLE ANTICOAGULANT THERAPY. 3Interpretive Data: Heparin Therapeutic Range: 57 - 92 Seconds
--- OUTSIDE RECORDS SUMMARY | 2019-04-16 14:49 | XMS REPORT | Summary of Care ---
Author Organization Unknown Address Unknown Phone Unavailable Encounter [facility] Surendra(DRAKE) [id number] Date(s): 12/18/14 - 12/18/14 [facility] [address] [place] [address]- Discharge Diagnosis: Acute urinary retention Discharge Disposition: Home Physician Attending: Tripp Rob DO Vital Signs 1 2 3 Most recent to oldest [Reference Range]: 170.18 cm (12/18/14 8:57 AM) Height 98.0 DegF (12/18/14 1:43 PM) 97.8 DegF (12/18/14 8:57 AM) Temperature Oral [96.4-99.1 DegF] 149/71 mmHg *HI* (12/18/14 1:43 PM) 127/89 mmHg (12/18/14 11:10 AM) 153/70 mmHg *HI* (12/18/14 10:26 AM) Blood Pressure [90-140/60-90 mmHg] 17 BRMIN (12/18/14 1:43 PM) 17 BRMIN (12/18/14 11:10 AM) 18 BRMIN (12/18/14 10:26 AM) Respiratory Rate [14-20 BRMIN] 99 bpm (12/18/14 10:26 AM) 106 bpm *HI* (12/18/14 8:57 AM) Peripheral Pulse Rate [60-100 bpm] 67.273 kg (12/18/14 8:57 AM) Weight 23.23 m2 (12/18/14 8:57 AM) Body Mass Index Problem List Condition Effective Dates Status Health Status Informant Diabetes(Confirmed) Resolved HTN Resolved (hypertension)(Confi rmed) Hypothyroidism(Confi Resolved rmed) Allergies, Adverse Reactions, Alerts Substance Reaction Severity Status NKDA Active Medications Cipro 500 mg oral tablet 500 mg=1 tab, PO, Q12H, # 14 tab, 0 Refill(s) Start Date: 12/18/14 Stop Date: 12/25/14 Status: Ordered Flomax 0.4 mg oral capsule 0.4 mg=1 cap, PO, Daily, # 30 cap, 0 Refill(s) Start Date: 12/18/14 Status: Ordered morphine Sulfate 3 mg, Route: IVP, Drug form: INJ, ONCE, Dosing Weight 67.273, kg, Priority: STAT , Start date: 12/18/14 10:28:00, Stop date: 12/18/14 10:28:00 Start Date: 12/18/14 Stop Date: 12/18/14 Status: Completed Zofran 4 mg, Route: IVP, Drug form: INJ, ONCE, Dosing Weight 67.273, kg, Priority: STAT , Start date: 12/18/14 10:28:00, Stop date: 12/18/14 10:28:00 Start Date: 12/18/14 Stop Date: 12/18/14 Status: Completed Results ELECTROLYTES Most recent to 1 oldest [Reference Range]: Sodium Lvl [135-145 127 mEq/L mEq/L] *LOW* (12/18/14 10:29 AM) Potassium Lvl 4.1 mEq/L [3.5-5.1 mEq/L] (12/18/14 10:29 AM) Chloride Lvl [95-109 96 mEq/L mEq/L] (12/18/14 10:29 AM) CO2 [24-32 mEq/L] 23 mEq/L *LOW* (12/18/14 10:29 AM) AGAP [10.0-20.0 12.1 mEq/L mEq/L] (12/18/14 10:29 AM) CHEM PANEL Most recent to 1 oldest [Reference Range]: Creatinine Lvl 1.3 mg/dL [0.5-1.4 mg/dL] (12/18/14 10:29 AM) eGFR 51 mL/min/1.73m2 1 *NA* (12/18/14 10:29 AM) BUN [7-22 mg/dL] 19 mg/dL (12/18/14 10:29 AM) Glucose Lvl [70-99 153 mg/dL 2 mg/dL] *HI* (12/18/14 10:29 AM) Calcium Lvl 8.9 mg/dL [8.5-10.5 mg/dL] (12/18/14 10:29 AM) 1Result Comment: The eGFR is calculated [...] be mul tiplied by the estimated BMI. 2Interpretive Data: Adult reference range values reflect the clinical guidelines of the [place] [employer]. URINE AND STOOL Most recent to 1 oldest [Reference Range]: UA Turbidity [Clear] Marked *ABN* (12/18/14 11:02 AM) UA Color Red *NA* (12/18/14 11:02 AM) UA pH [5.0-8.0] 6.0 (12/18/14 11:02 AM) UA Spec Grav 1.006 [<=1.030] (12/18/14 11:02 AM) UA Glucose [Negative Negative mg/dL mg/dL] *NA* (12/18/14 11:02 AM) UA Blood [Negative] Large *ABN* (12/18/14 11:02 AM) UA Ketones [Negative Negative mg/dL mg/dL] *NA* (12/18/14 11:02 AM) UA Protein [Negative 100 mg/dL mg/dL] *ABN* (12/18/14 11:02 AM) UA Urobilinogen <=1.0 mg/dL [0.1-1.0 mg/dL] *NA* (12/18/14 11:02 AM) UA Bili [Negative] Negative *NA* (12/18/14 11:02 AM) UA Leuk Est Small [Negative] *ABN* (12/18/14 11:02 AM) UA Nitrite Negative [Negative] (12/18/14 11:02 AM) UA WBC [0-5 /HPF] >182 /HPF *HI* (12/18/14 11:02 AM) UA RBC [0-2 /HPF] >182 /HPF *HI* (12/18/14 11:02 AM) UA Bacteria [None Occasional /HPF Seen /HPF] *NA* (12/18/14 11:02 AM) UA Sq Epi None Seen *NA* (12/18/14 11:02 AM) HEMATOLOGY Most recent to 1 oldest [Reference Range]: WBC [3.7-10.4 K/CMM] 8.3 K/CMM (12/18/14 10:29 AM) RBC [4.70-6.10 3.47 M/CMM M/CMM] *LOW* (12/18/14 10:29 AM) Hgb [14.0-18.0 g/dL] 10.2 g/dL *LOW* (12/18/14 10:29 AM) Hct [42.0-54.0 %] 30.6 % *LOW* (12/18/14 10:29 AM) MCV [80.0-94.0 fL] 88.4 fL (12/18/14 10:29 AM) MCH [27.0-31.0 pg] 29.5 pg (12/18/14 10:29 AM) MCHC [32.0-36.0 33.4 g/dL g/dL] (12/18/14 10:29 AM) RDW [11.5-14.5 %] 14.3 % (12/18/14 10:29 AM) Platelet [133-450 182 K/CMM K/CMM] (12/18/14 10:29 AM) MPV [7.4-10.4 fL] 8.3 fL (12/18/14 10:29 AM) Segs [45.0-75.0 %] 72.4 % (12/18/14 10:29 AM) Lymphocytes 18.6 % [20.0-40.0 %] *LOW* (12/18/14 10:29 AM) Monocytes [2.0-12.0 8.0 % %] (12/18/14 10:29 AM) Eosinophils [0.0-4.0 0.3 % %] (12/18/14 10:29 AM) Basophils [0.0-1.0 0.7 % %] (12/18/14 10:29 AM) Segs-Bands # 6.0 K/CMM [1.5-8.1 K/CMM] (12/18/14 10:29 AM) Lymphocytes # 1.5 K/CMM [1.0-5.5 K/CMM] (12/18/14 10:29 AM) Monocytes # [0.0-0.8 0.7 K/CMM K/CMM] (12/18/14 10:29 AM) Basophils # [0.0-0.2 0.1 K/CMM K/CMM] (12/18/14 10:29 AM) PT [12.0-14.7 14.0 seconds seconds] (12/18/14 10:29 AM) INR [0.85-1.17] 1.08 3 (12/18/14 10:29 AM) PTT [22.9-35.8 34.0 seconds 4 seconds] (12/18/14 10:29 AM) 3Interpretive Data: RECOMMENDED RANGES FOR PROTIME INR: 2.0-3.0 for most medical and surgical thromboembolic states. 2.5-3.5 for artificial heart valves and recurrent embolism. INR SHOULD BE USED ONLY FOR PATIENTS ON STABLE ANTICOAGULANT THERAPY. 4Interpretive Data: Heparin Therapeutic Range: 57 - 92 Seconds Immunizations No data available for this section Procedures Procedure Date Related Diagnosis Body Site Cholecystectomy Social History Social History Type Response Smoking Status Former smoker; Number of years: 20; Exposure to Tobacco Smoke None; Cigarette Smoking Last 365 Days No; Reg Smoking Cessation Counseling No Assessment and Plan No data available for this section
--- OUTSIDE RECORDS SUMMARY | 2019-04-16 14:49 | XMS REPORT | CCD ---
Author Author Auto Generated Organization [facility] Address Unknown Phone Unavailable Care Team Providers Care Yield Loss Inspector Name Role Phone Ariel Claros CP Allergies, Adverse Reactions, Alerts Substance Reaction Status NKDA Active Vital Signs Most recent to oldest [Reference Range]: 1 Height 172.72 cm (09/16/2012 17:21:00) Weight 72.727 kg (09/16/2012 17:21:00)
--- OUTSIDE RECORDS SUMMARY | 2019-04-16 14:49 | XMS REPORT ---
Author Author [facility] Address Unknown Phone Unavailable Care Team Providers Care Chiropractor Sole Practitioner Name Role Phone Unavailable Unavailable Payers Payer Name Policy Type Policy Number Effective Date Expiration Date Problems This patient has no known problems. Allergies, Adverse Reactions, Alerts Allergy Name Allergy Type Status Severity Reaction(s) Onset Date Inactive Date Treating Clinician Comments No Known Allergies DA Active U 2019-03-26 00:00:00 Medications This patient has no known medications. Results Test Description Test Time Test Comments Text Results Atomic Results Result Comments GLUBED 2019-03-27 08:02:00 GLUBED (test code=GLUBED) 139 MG/DL 70-105 - XR CHEST 2 [id number] 14:29:00Patient Name: MUKESH FARMER Unit No: [id number] EXAMS: CPT CODE: [id number] XR CHEST 2 V [id number] Chest 2 views 03/26/2019 2:29 PM CLINICAL HISTORY: Preop COMPARISON: 01/29/2014 LOCATION: W1 FINDINGS: The lungs are clear. Cardiomediastinal contours are within normal limits. The central pulmonary vasculature is not engorged. The visualized skeleton is intact. There are surgical clips in the gallbladder fossa. IMPRESSION: No acute radiographic abnormalities. at 1429 Reported and signed by: YUMIKO SPENCER M.D. CC: Carlos Dominguez MD Technologist: Philippe Jugo Fluoro Time: DAP (Gy m2): Air Kerma (mGy): Trscr Dt/Tm: 03/26/2019 ([id number]) by:[email or web address] Printed Date/Time: 03/26/2019 ([id number]) Name: MUKESH FARMER [facility] Phys: Carlos Woodward MD [address] : 1935 Age: 83 Sex: [place] [id number] Loc: P.SRG Exam Date: 03/26/2019 Status: PRE SDC PH: FAX: PAGE 1 Signed Report BASIC METABOLIC [id number] 13:53:00* Test Item Value Reference Range Comments SODIUM (test code=NA) 132 MMOL/L 136-143 POTASSIUM (test code=K) 4.4 MMOL/L 3.5-5.1 CHLORIDE (test code=CL) 96 MMOL/L 98-107 CARBON DIOXIDE (test code=CO2) 22 mmol/L 24-31 GLUCOSE (test code=GLU) 233 mg/dL 70-104 BLOOD UREA NITROGEN (test code=BUN) 19.8 MG/DL 7.0-21.0 GLOMERULAR FILTRATION RATE (test code=GFR) 44 >60 The estimated glomerular filtration rate is computed usingpatient race, age (>18), sex, and serum creatinine. If anyof the needed data elements are missing the Laboratory cannot compute an estimation of the glomerular filtration rate. CREATININE (test code=CREAT) 1.6 mg/dL 0.8-1.5 CALCIUM (test code=CA) 8.6 mg/dL 8.8-10.2 CBC W/AUTO [id number] 13:36:00* Test Item Value Reference Range Comments WHITE BLOOD CELL (test code=WBC) 8.7 x10 3/uL 4.8-10.8 RED BLOOD CELL (test code=RBC) 3.51 x10 6/uL 4.70-6.10 HEMOGLOBIN (test code=HGB) 10.4 g/dL 14.5-20 HEMATOCRIT (test code=HCT) 31.7 % 42.0-52.0 MEAN CELL VOLUME (test code=MCV) 90.3 fL 80.0-94.0 MEAN CELL HGB (test code=MCH) 29.6 pg 27-31 MEAN CELL HGB CONCENTRATION (test code=MCHC) 32.8 G/DL 33-36.5 RED CELL DISTRIBUTION WIDTH (test code=RDW) 13.0 % 12.9-16.9 PLATELET COUNT (test code=PLT) 253 150-440 MEAN PLATELET VOLUME (test code=MPV) 9.3 fL 8.9-12.4 NEUTROPHIL % (test code=NT%) 70.1 % 42.2-75.2 LYMPHOCYTE % (test code=LY%) 17.7 % 20.5-51.1 MONOCYTE % (test code=MO%) 10.5 % 1.7-9.3 EOSINOPHIL % (test code=EO%) 0.9 % 0.0-7.0 BASOPHIL % (test code=BA%) 0.6 % 0-2.5 NEUTROPHIL # (test code=NT#) 6.08 x10 3/uL 1.80-7.70 LYMPHOCYTE # (test code=LY#) 1.54 x10 3/uL 1.00-4.80 MONOCYTE # (test code=MO#) 0.91 x10 3/uL 0.00-0.80 EOSINOPHIL # (test code=EO#) 0.08 x10 3/uL 0.00-0.45 BASOPHIL # (test code=BA#) 0.05 x10 3/uL 0.0-0.20
--- OUTSIDE RECORDS SUMMARY | 2019-04-16 14:49 | XMS REPORT | Summary of Care ---
Author Author [facility] Organization [facility] Address Unknown Phone Unavailable Encounter KRYSTIN Agosto(DRAKE) [id number] Date(s): 07/23/16 - 07/25/16 [facility] [address] [place] [address]- [phone] Discharge Disposition: Home or Self Care Attending Physician: Geovanni Barnett MD Admitting Physician: Geovanni Barnett MD Vital Signs 1 2 3 Most recent to oldest [Reference Range]: 170.18 cm (07/23/16 7:28 PM) Height 74.136 kg (07/25/16 5:00 AM) Current Weight 98.5 DegF (07/25/16 12:00 PM) 98.2 DegF (07/25/16 8:00 AM) 97.7 DegF (07/25/16 4:00 AM) Temperature Oral [96.4-99.1 DegF] 131/83 mmHg (07/25/16 12:00 PM) 129/70 mmHg (07/25/16 8:00 AM) 161/83 mmHg *HI* (07/25/16 4:00 AM) Blood Pressure [90-140/60-90 mmHg] 18 BRMIN (07/25/16 12:00 PM) 18 BRMIN (07/25/16 8:00 AM) 16 BRMIN (07/25/16 7:42 AM) Respiratory Rate [14-20 BRMIN] 71 bpm (07/25/16 12:00 PM) 77 bpm (07/25/16 8:00 AM) 87 bpm (07/25/16 4:00 AM) Peripheral Pulse Rate [60-100 bpm] 71.364 kg (07/23/16 7:28 PM) Weight 24.64 m2 (07/23/16 7:28 PM) Body Mass Index Problem List Condition Effective Dates Status Health Status Informant Diabetes(Confirmed) Resolved HTN Resolved (hypertension)(Confi rmed) Hypothyroidism(Confi Resolved rmed) Allergies, Adverse Reactions, Alerts Substance Reaction Severity Status NKDA Active Medications acetaminophen 650 mg, 2 tab, Route: PO, Drug form: TAB, Q4H, Dosing Weight 71.364, kg, PRN Hea dache 1-5, Start date: 07/24/16 6:23:00 SCALER PACKER, Duration: 30 day, Stop date: 6:22:00 SCALER PACKER Notes: Do not exceed 4 gm/day. (Same as: Tylenol) Start Date: 07/24/16 Stop Date: 07/25/16 Status: Discontinued aspirin 325 mg tablet 325 mg, Route: PO, Drug form: TAB, ONCE, Dosing Weight 71.364, kg, Priority: STA T, Start date: 07/24/16 6:05:00 SCALER PACKER, Stop date: 07/24/16 6:05:00 SCALER PACKER Start Date: 07/24/16 Stop Date: 07/24/16 Status: Completed aspirin 325 mg tablet 325 mg, 1 tab, Route: PO, Drug form: TAB, Daily, Dosing Weight 71.364, kg, Start date: 07/24/16 9:00:00 SCALER PACKER, Duration: 30 day, Stop date: 08/22/16 9:00:00 SCALER PACKER Notes: Take with food. Start Date: 07/24/16 Stop Date: 07/25/16 Status: Discontinued atorvastatin 20 mg, 2 tab, Route: PO, Drug form: TAB, Bedtime, Dosing Weight 71.364, kg, Star t date: 07/24/16 21:00:00 SCALER PACKER, Duration: 30 day, Stop date: 08/22/16 21:00:00 CS T Notes: (Same As: Lipitor) Start Date: 07/24/16 Stop Date: 07/25/16 Status: Discontinued atorvastatin 20 mg oral tablet 20 mg=1 tab, PO, Bedtime, # 30 tab, 0 Refill(s) Start Date: 07/24/16 Status: Ordered cefpodoxime 100 mg oral tablet 100 mg=1 tab, PO, Q12H, X 5 day, # 10 tab, 0 Refill(s) Start Date: 07/25/16 Stop Date: 07/30/16 Status: Ordered cefTRIAXone + sodium chloride 0.9% INJ 100 mL 1 gm, Route: IVPB, Q6AM, Dosing Weight 71.364, kg, Start date: 07/25/16 6:00:00 SCALER PACKER, Duration: 30 day, Stop date: 08/23/16 6:00:00 SCALER PACKER Notes: (Same As: Rocephin).Use with 100 mL NS and infuse over 30 min MEDICA TION WASTE Product Size: 1000 mgProduct Wasted: ___ mg Start Date: 07/25/16 Stop Date: 07/25/16 Status: Discontinued ciprofloxacin 250 mg, PO, BID, 0 Refill(s) Start Date: 07/24/16 Stop Date: 07/25/16 Status: Discontinued Dextrose 50% Syringe 12.5 gm, 25 mL, Route: IVP, Drug Form: INJ, Dosing Weight 71.364, kg, PRN, PRN B lood Glucose Results, Start date: 07/24/16 10:55:00 SCALER PACKER, Duration: 30 day, Stop date: 08/23/16 10:54:00 SCALER PACKER Start Date: 07/24/16 Stop Date: 07/25/16 Status: Discontinued Dextrose 50% Syringe 25 gm, 50 mL, Route: IVP, Drug Form: INJ, Dosing Weight 71.364, kg, PRN, PRN Blo od Glucose Results, Start date: 07/24/16 10:55:00 SCALER PACKER, Duration: 30 day, Stop da te: 08/23/16 10:54:00 SCALER PACKER Start Date: 07/24/16 Stop Date: 07/25/16 Status: Discontinued ferrous sulfate 325 mg, 1 tab, Route: PO, Drug form: ECTAB, Daily, Dosing Weight 71.364, kg, Sta rt date: 07/25/16 9:00:00 SCALER PACKER, Duration: 30 day, Stop date: 08/23/16 9:00:00 SCALER PACKER Notes: Give with food. "Do Not Crush" Start Date: 07/25/16 Stop Date: 07/25/16 Status: Discontinued ferrous sulfate 325 mg oral enteric coated tablet 325 mg=1 tab, PO, Daily, # 30 tab, 0 Refill(s) Start Date: 07/24/16 Status: Ordered Flomax 0.4 mg, 1 cap, Route: PO, Drug form: CAP, Daily, Dosing Weight 71.364, kg, Start date: 07/25/16 9:00:00 SCALER PACKER, Duration: 30 day, Stop date: 08/23/16 9:00:00 SCALER PACKER Notes: (Same As: Flomax) "Do Not Crush" Start Date: 07/25/16 Stop Date: 07/25/16 Status: Discontinued glucagon 1 mg, Route: IM, Drug form: PDR/INJ, PRN, Dosing Weight 71.364, kg, PRN Blood Gl ucose Results, Start date: 07/24/16 10:55:00 SCALER PACKER, Duration: 30 day, Stop date: 10/24/15 10:54:00 SCALER PACKER Start Date: 07/24/16 Stop Date: 07/25/16 Status: Discontinued hydrochlorothiazide-lisinopril 12.5 mg-20 mg oral tablet 1 tab, PO, Daily, # 30 tab, 0 Refill(s) Start Date: 07/24/16 Stop Date: 07/25/16 Status: Discontinued influenza virus vaccine, inactivated 0.5 mL, Route: IM, Drug Form: SUSP, Daily, Start date: 07/25/16 9:00:00 SCALER PACKER, Sto p date: 07/25/16 15:00:00 SCALER PACKER Notes: (Same as: Fluzone Quadrivalent, Fluarix Quadrivalent)For 3 years of age a nd older (0.5 mL IM)Shake well before use Start Date: 07/25/16 Stop Date: 07/25/16 Status: Discontinued insulin aspart 5 unit, 0.05 mL, Route: SUB-Q, Drug form: SOLN, TID-Before Meals, Dosing Weight 71.364, kg, PRN Blood Glucose Results, Start date: 07/24/16 10:55:00 SCALER PACKER, Durati on: 30 day, Stop date: 08/23/16 10:54:00 SCALER PACKER Notes: Roll in palms of hands gently; Do not shake vigorously. (Same as: Orestes Kyle)"single patient use only"WASTE: F/P - Black; E - Municipal Trash Bin Stable f or 28 days at room temperature.Expires in days from Date Start Date: 07/24/16 Stop Date: 07/25/16 Status: Discontinued insulin aspart 1 unit, 0.01 mL, Route: SUB-Q, Drug form: SOLN, TID-Before Meals, Dosing Weight 71.364, kg, PRN Blood Glucose Results, Start date: 07/24/16 10:55:00 SCALER PACKER, Durati on: 30 day, Stop date: 08/23/16 10:54:00 SCALER PACKER Notes: Roll in palms of hands gently; Do not shake vigorously. (Same as: Orestes Kyle)"single patient use only"WASTE: F/P - Black; E - Municipal Trash Bin Stable f or 28 days at room temperature.Expires in days from Date Start Date: 07/24/16 Stop Date: 07/25/16 Status: Discontinued insulin aspart 2 unit, 0.02 mL, Route: SUB-Q, Drug form: SOLN, TID-Before Meals, Dosing Weight 71.364, kg, PRN Blood Glucose Results, Start date: 07/24/16 10:55:00 SCALER PACKER, Durati on: 30 day, Stop date: 08/23/16 10:54:00 SCALER PACKER Notes: Roll in palms of hands gently; Do not shake vigorously. (Same as: Orestes Kyle)"single patient use only"WASTE: F/P - Black; E - Municipal Trash Bin Stable f or 28 days at room temperature.Expires in days from Date Start Date: 07/24/16 Stop Date: 07/25/16 Status: Discontinued insulin aspart 3 unit, 0.03 mL, Route: SUB-Q, Drug form: SOLN, TID-Before Meals, Dosing Weight 71.364, kg, PRN Blood Glucose Results, Start date: 07/24/16 10:55:00 SCALER PACKER, Durati on: 30 day, Stop date: 08/23/16 10:54:00 SCALER PACKER Notes: Roll in palms of hands gently; Do not shake vigorously. (Same as: Orestes Kyle)"single patient use only"WASTE: F/P - Black; E - Municipal Trash Bin Stable f or 28 days at room temperature.Expires in days from Date Start Date: 07/24/16 Stop Date: 07/25/16 Status: Discontinued insulin aspart 4 unit, 0.04 mL, Route: SUB-Q, Drug form: SOLN, TID-Before Meals, Dosing Weight 71.364, kg, PRN Blood Glucose Results, Start date: 07/24/16 10:55:00 SCALER PACKER, Durati on: 30 day, Stop date: 08/23/16 10:54:00 SCALER PACKER Notes: Roll in palms of hands gently; Do not shake vigorously. (Same as: NovoLO G)"single patient use only"WASTE: F/P - Black; E - Municipal Trash Bin Stable f or 28 days at room temperature.Expires in days from Date Start Date: 07/24/16 Stop Date: 07/25/16 Status: Discontinued metFORMIN 500 mg, PO, Daily, 0 Refill(s) Start Date: 07/24/16 Status: Ordered morphine Sulfate 2 mg, 1 mL, Route: IVP, Drug form: INJ, Q2H, Dosing Weight 71.364, kg, PRN Pain Score 4-6, Start date: 07/24/16 6:23:00 SCALER PACKER, Duration: 30 day, Stop date: 6:22:00 SCALER PACKER Notes: (Same as:MORPhine Sulfate) Start Date: 07/24/16 Stop Date: 07/25/16 Status: Discontinued morphine Sulfate 4 mg, 2 mL, Route: IVP, Drug form: INJ, Q2H, Dosing Weight 71.364, kg, PRN Pain Score 7-10, Start date: 07/24/16 6:23:00 SCALER PACKER, Duration: 30 day, Stop date: 08/23 6:22:00 SCALER PACKER Notes: (Same as:MORPhine Sulfate) Start Date: 07/24/16 Stop Date: 07/25/16 Status: Discontinued morphine Sulfate 4 mg, Route: IV, ONCE, Dosing Weight 71.364, kg, Priority: STAT, Start date: 6:06:00 SCALER PACKER, Stop date: 07/24/16 6:06:00 SCALER PACKER Start Date: 07/24/16 Stop Date: 07/24/16 Status: Completed nitroglycerin SL Tab 0.4 mg, 1 tab, Route: SL, Drug form: TAB, Q5Min, Dosing Weight 71.364, kg, PRN C hest Pain, Start date: 07/24/16 6:23:00 SCALER PACKER, Duration: 3 doses or times, Stop da te: Limited # of times Notes: (Same as:Nitroquick, Nitrostat)"Do Not Crush" Sublingual tablet Start Date: 07/24/16 Stop Date: 07/25/16 Status: Discontinued ondansetron 4 mg, 1 tab, Route: PO, Drug form: TAB, Q8H, Dosing Weight 71.364, kg, PRN Nause a & Vomiting, Start date: 07/24/16 6:23:00 SCALER PACKER, Duration: 30 day, Stop date: 08/23/16 6:22:00 SCALER PACKER Notes: (Same as: Zofran) Start Date: 07/24/16 Stop Date: 07/25/16 Status: Discontinued Rocephin 1 gm, Route: IVPB, Drug form: PDR/INJ, ONCE, Dosing Weight 71.364, kg, Priority: STAT, Start date: 07/24/16 6:04:00 SCALER PACKER, Stop date: 07/24/16 6:04:00 SCALER PACKER Start Date: 07/24/16 Stop Date: 07/24/16 Status: Completed Saline Flush 0.9% 10 mL, Route: IVP, Drug Form: INJ, Dosing Weight 70.455, kg, PRN, PRN Line Flush , Start date: 07/23/16 19:30:00 SCALER PACKER, Duration: 30 day, Stop date: 08/22/16 19:29 :00 SCALER PACKER Notes: (Same as: BD Posiflush) Start Date: 07/23/16 Stop Date: 07/25/16 Status: Discontinued Saline Flush 0.9% 10 ml, Route: IVP, Drug Form: INJ, Dosing Weight 71.364, kg, PRN, PRN Line Flush , Start date: 07/24/16 6:23:00 SCALER PACKER, Duration: 30 day, Stop date: 08/23/16 6:22:0 0 SCALER PACKER Notes: (Same as: BD Posiflush) Start Date: 07/24/16 Stop Date: 07/25/16 Status: Discontinued Saline Flush 0.9% 10 ml, Route: IVP, Drug Form: INJ, Dosing Weight 71.364, kg, Q12H, Start date: 09/23/15 9:00:00 SCALER PACKER, Duration: 30 day, Stop date: 08/22/16 21:00:00 SCALER PACKER Notes: (Same as: BD Posiflush) Start Date: 07/24/16 Stop Date: 07/25/16 Status: Discontinued sodium chloride 0.9% 1000 ml INJ 1,000 mL 1,000 mL, Rate: 75 ml/hr, Infuse over: 13.3 hr, Route: IV, Dosing Weight 71.364 kg, Total Volume: 1,000, Start date: 07/24/16 6:23:00 SCALER PACKER, Duration: 30 day, Sto p date: 08/23/16 6:22:00 SCALER PACKER Start Date: 07/24/16 Stop Date: 07/25/16 Status: Discontinued temazepam 15 mg, 1 cap, Route: PO, Drug form: CAP, Bedtime, Dosing Weight 71.364, kg, PRN Insomnia, Start date: 07/24/16 6:23:00 SCALER PACKER, Duration: 30 day, Stop date: 6 6:22:00 SCALER PACKER Notes: (Same As: Restoril) Start Date: 07/24/16 Stop Date: 07/25/16 Status: Discontinued Zofran 8 mg, Route: IVP, Drug form: INJ, ONCE, Dosing Weight 71.364, kg, Priority: STAT , Start date: 07/24/16 6:06:00 SCALER PACKER, Stop date: 07/24/16 6:06:00 SCALER PACKER Start Date: 07/24/16 Stop Date: 07/24/16 Status: Completed Results ELECTROLYTES 1 2 3 Most recent to oldest [Reference Range]: 131 mEq/L *LOW* (07/24/16 1:09 AM) Sodium Lvl [135-145 mEq/L] 4.2 mEq/L (07/24/16 1:09 AM) Potassium Lvl [3.5-5.1 mEq/L] 97 mEq/L (07/24/16 1:09 AM) Chloride Lvl [95-109 mEq/L] 22 mEq/L *LOW* (07/24/16 1:09 AM) CO2 [24-32 mEq/L] 16.2 mEq/L (07/24/16 1:09 AM) AGAP [10.0-20.0 mEq/L] CHEM PANEL 1 2 3 Most recent to oldest [Reference Range]: 1.40 mg/dL (07/24/16 1:09 AM) Creatinine Lvl [0.50-1.40 mg/dL] 46 mL/min/1.73m2 1 *NA* (07/24/16 1:09 AM) eGFR 24 mg/dL *HI* (07/24/16 1:09 AM) BUN [7-22 mg/dL] 17 (07/24/16 1:09 AM) B/C Ratio [6-25] 162 mg/dL *HI* (07/24/16 1:09 AM) Glucose Lvl [70-99 mg/dL] 8.5 g/dL *HI* (07/24/16 1:09 AM) Total Protein [6.4-8.4 g/dL] 3.4 g/dL *LOW* (07/24/16 1:09 AM) Albumin Lvl [3.5-5.0 g/dL] 5.1 g/dL *HI* (07/24/16 1:09 AM) Globulin [2.7-4.2 g/dL] 0.7 (07/24/16 1:09 AM) A/G Ratio [0.7-1.6] 8.9 mg/dL (07/24/16 1:09 AM) Calcium Lvl [8.5-10.5 mg/dL] 10 unit/L (07/24/16 1:09 AM) ALT [0-65 unit/L] 12 unit/L (07/24/16 1:09 AM) AST [0-37 unit/L] 102 unit/L (07/24/16 1:09 AM) Alk Phos [39-136 unit/L] 0.8 mg/dL (07/24/16 1:09 AM) Bili Total [0.2-1.3 mg/dL] 1Result Comment: The eGFR is calculated using [...] be mul tiplied by the estimated BMI. CARDIAC ENZYMES 1 2 3 Most recent to oldest [Reference Range]: 53 unit/L (07/24/16 10:52 AM) 55 unit/L (07/24/16 6:32 AM) 50 unit/L (07/24/16 1:09 AM) Total CK [12-191 unit/L] <0.5 ng/mL (07/24/16 1:09 AM) CK MB [0.5-3.6 ng/mL] <1.0 (07/24/16 1:09 AM) CK MB Index [0.0-2.5] <0.02 ng/mL (07/24/16 10:52 AM) <0.02 ng/mL (07/24/16 6:32 AM) <0.02 ng/mL (07/24/16 1:09 AM) Troponin-I [0.00-0.40 ng/mL] 35 pg/mL (07/24/16 1:09 AM) BNP [<=100 pg/mL] LIPIDS 1 2 3 Most recent to oldest [Reference Range]: 2.56 *LOW* (07/25/16 4:27 AM) CHD Risk [4.00-7.30] 123 mg/dL (07/25/16 4:27 AM) Chol [<=199 mg/dL] 74 mg/dL (07/25/16 4:27 AM) Trig [<=149 mg/dL] 48 mg/dL *LOW* (07/25/16 4:27 AM) HDL [>=61 mg/dL] 60 mg/dL (07/25/16 4:27 AM) LDL (Calculated) [<=99 mg/dL] 15 *NA* (07/25/16 4:27 AM) VLDL URINE AND STOOL 1 2 3 Most recent to oldest [Reference Range]: Clear (07/24/16 4:00 AM) UA Turbidity [Clear] Ltyellow *NA* (07/24/16 4:00 AM) UA Color 5.0 (07/24/16 4:00 AM) UA pH [5.0-8.0] 1.008 (07/24/16 4:00 AM) UA Spec Grav [<=1.030] Negative mg/dL *NA* (07/24/16 4:00 AM) UA Glucose [Negative mg/dL] Negative (07/24/16 4:00 AM) UA Blood [Negative] Negative mg/dL *NA* (07/24/16 4:00 AM) UA Ketones [Negative mg/dL] 30 mg/dL *ABN* (07/24/16 4:00 AM) UA Protein [Negative mg/dL] <=1.0 mg/dL *NA* (07/24/16 4:00 AM) UA Urobilinogen [0.1-1.0 mg/dL] Negative *NA* (07/24/16 4:00 AM) UA Bili [Negative] Moderate *ABN* (07/24/16 4:00 AM) UA Leuk Est [Negative] Negative (07/24/16 4:00 AM) UA Nitrite [Negative] 13 /HPF *HI* (07/24/16 4:00 AM) UA WBC [0-5 /HPF] 2 /HPF (07/24/16 4:00 AM) UA RBC [0-2 /HPF] Moderate /LPF *ABN* (07/24/16 4:00 AM) UA Sq Epi [Few /LPF] 15 /LPF *HI* (07/24/16 4:00 AM) UA Trans Epi [<=0 /LPF] HEMATOLOGY 1 2 3 Most recent to oldest [Reference Range]: 8.1 K/CMM (07/24/16 1:09 AM) WBC [3.7-10.4 K/CMM] 3.39 M/CMM *LOW* (07/24/16 1:09 AM) RBC [4.70-6.10 M/CMM] 10.4 g/dL *LOW* (07/24/16 1:09 AM) Hgb [14.0-18.0 g/dL] 30.5 % *LOW* (07/24/16 1:09 AM) Hct [42.0-54.0 %] 89.8 fL (07/24/16 1:09 AM) MCV [80.0-94.0 fL] 30.7 pg (07/24/16 1:09 AM) MCH [27.0-31.0 pg] 34.2 g/dL (07/24/16 1:09 AM) MCHC [32.0-36.0 g/dL] 13.6 % (07/24/16 1:09 AM) RDW [11.5-14.5 %] 217 K/CMM (07/24/16 1:09 AM) Platelet [133-450 K/CMM] 7.8 fL (07/24/16 1:09 AM) MPV [7.4-10.4 fL] 66.4 % (07/24/16 1:09 AM) Segs [45.0-75.0 %] 18.0 % *LOW* (07/24/16 1:09 AM) Lymphocytes [20.0-40.0 %] 13.7 % *HI* (07/24/16 1:09 AM) Monocytes [2.0-12.0 %] 0.9 % (07/24/16 1:09 AM) Eosinophils [0.0-4.0 %] 1.0 % (07/24/16 1:09 AM) Basophils [0.0-1.0 %] 5.4 K/CMM (07/24/16 1:09 AM) Segs-Bands # [1.5-8.1 K/CMM] 1.5 K/CMM (07/24/16 1:09 AM) Lymphocytes # [1.0-5.5 K/CMM] 1.1 K/CMM *HI* (07/24/16 1:09 AM) Monocytes # [0.0-0.8 K/CMM] 0.1 K/CMM (07/24/16 1:09 AM) Eosinophils # [0.0-0.5 K/CMM] 0.1 K/CMM (07/24/16 1:09 AM) Basophils # [0.0-0.2 K/CMM] Immunizations Given and Recorded Vaccine Date Status [...]
--- OUTSIDE RECORDS SUMMARY | 2019-04-16 14:49 | XMS REPORT | Summary of Care ---
Author Organization Unknown Address Unknown Phone Unavailable Encounter [facility] Su[facility](DRAKE) [id number] Date(s): 03/02/15 - 03/02/15 [facility] [address] [place] [address]- Discharge Diagnosis: Urinary retention Discharge Disposition: Home Physician Attending: Yany Anderson MD Vital Signs 1 2 3 Most recent to oldest [Reference Range]: 170.18 cm (03/02/15 12:50 PM) Height 97 DegF (03/02/15 6:47 PM) 98.6 DegF (03/02/15 12:50 PM) Temperature Oral [96.4-99.1 DegF] 130/76 mmHg (03/02/15 6:47 PM) 153/70 mmHg *HI* (03/02/15 5:01 PM) 141/70 mmHg *HI* (03/02/15 3:33 PM) Blood Pressure [90-140/60-90 mmHg] 18 BRMIN (03/02/15 6:47 PM) 19 BRMIN (03/02/15 5:01 PM) 17 BRMIN (03/02/15 3:33 PM) Respiratory Rate [14-20 BRMIN] 69 bpm (03/02/15 6:47 PM) 74 bpm (03/02/15 5:01 PM) 78 bpm (03/02/15 3:33 PM) Peripheral Pulse Rate [60-100 bpm] 70.455 kg (03/02/15 12:50 PM) Weight 24.33 m2 (03/02/15 12:50 PM) Body Mass Index Problem List Condition Effective Dates Status Health Status Informant Diabetes(Confirmed) Resolved HTN Resolved (hypertension)(Confi rmed) Hypothyroidism(Confi Resolved rmed) Allergies, Adverse Reactions, Alerts Substance Reaction Severity Status NKDA Active Medications morphine Sulfate 4 mg, Route: IVP, ONCE, Dosing Weight 70.455, kg, Start date: 03/02/15 14:16:00, Stop date: 03/02/15 14:16:00 Start Date: 03/02/15 Stop Date: 03/02/15 Status: Completed Zofran 4 mg, Route: IVP, Drug form: INJ, ONCE, Dosing Weight 70.455, kg, PRN Nausea, Pr iority: STAT, Start date: 03/02/15 14:16:00 Start Date: 03/02/15 Stop Date: 03/02/15 Status: Completed Results ELECTROLYTES Most recent to 1 oldest [Reference Range]: Sodium Lvl [135-145 134 mEq/L mEq/L] *LOW* (03/02/15 1:18 PM) Potassium Lvl 4.5 mEq/L [3.5-5.1 mEq/L] (03/02/15 1:18 PM) Chloride Lvl [95-109 102 mEq/L mEq/L] (03/02/15 1:18 PM) CO2 [24-32 mEq/L] 23 mEq/L *LOW* (03/02/15 1:18 PM) AGAP [10.0-20.0 13.5 mEq/L mEq/L] (03/02/15 1:18 PM) CHEM PANEL Most recent to 1 oldest [Reference Range]: Creatinine Lvl 1.2 mg/dL [0.5-1.4 mg/dL] (03/02/15 1:18 PM) eGFR 56 mL/min/1.73m2 1 *NA* (03/02/15 1:18 PM) BUN [7-22 mg/dL] 20 mg/dL (03/02/15 1:18 PM) B/C Ratio [6-25] 17 (03/02/15 1:18 PM) Glucose Lvl [70-99 121 mg/dL 2 mg/dL] *HI* (03/02/15 1:18 PM) Total Protein 8.3 g/dL [6.4-8.4 g/dL] (03/02/15 1:18 PM) Albumin Lvl [3.5-5.0 3.5 g/dL g/dL] (03/02/15 1:18 PM) Globulin [2.0-4.0 4.8 g/dL g/dL] *HI* (03/02/15 1:18 PM) A/G Ratio [0.7-1.6] 0.7 (03/02/15 1:18 PM) Calcium Lvl 8.5 mg/dL [8.5-10.5 mg/dL] (03/02/15 1:18 PM) ALT [0-65 unit/L] 10 unit/L (03/02/15 1:18 PM) AST [0-37 unit/L] 12 unit/L (03/02/15 1:18 PM) Alk Phos [39-136 109 unit/L unit/L] (03/02/15 1:18 PM) Bili Total [0.2-1.3 0.3 mg/dL mg/dL] (03/02/15 1:18 PM) 1Result Comment: The eGFR is calculated using [...] values reflect the clinical guidelines of the [employer]. URINE AND STOOL Most recent to 1 oldest [Reference Range]: UA Turbidity [Clear] Clear (03/02/15 5:01 PM) UA Color [Yellow] Yellow *NA* (03/02/15 5:01 PM) UA pH [5.0-8.0] 5.5 (03/02/15 5:01 PM) UA Spec Grav <=1.005 [<=1.030] *NA* (03/02/15 5:01 PM) UA Glucose Negative [Negative] (03/02/15 5:01 PM) UA Blood [Negative] Large *ABN* (03/02/15 5:01 PM) UA Ketones Negative [Negative] *NA* (03/02/15 5:01 PM) UA Protein [Negative 30 mg/dL mg/dL] *ABN* (03/02/15 5:01 PM) UA Urobilinogen 0.2 EU/dL [0.1-1.0 EU/dL] (03/02/15 5:01 PM) UA Bili [Negative] Negative *NA* (03/02/15 5:01 PM) UA Leuk Est Trace [Negative] *ABN* (03/02/15 5:01 PM) UA Nitrite Negative [Negative] (03/02/15 5:01 PM) UA WBC [0-5 /HPF] 8 /HPF *HI* (03/02/15 5:01 PM) UA RBC [0-2 /HPF] 92 /HPF *HI* (03/02/15 5:01 PM) UA Bacteria [None Occasional /HPF Seen /HPF] *NA* (03/02/15 5:01 PM) UA Sq Epi [Few /LPF] Occasional /LPF (03/02/15 5:01 PM) HEMATOLOGY Most recent to 1 oldest [Reference Range]: WBC [3.7-10.4 K/CMM] 5.9 K/CMM (03/02/15 1:18 PM) RBC [4.70-6.10 3.31 M/CMM M/CMM] *LOW* (03/02/15 1:18 PM) Hgb [14.0-18.0 g/dL] 10.0 g/dL *LOW* (03/02/15 1:18 PM) Hct [42.0-54.0 %] 29.0 % *LOW* (03/02/15 1:18 PM) MCV [80.0-94.0 fL] 87.5 fL (03/02/15 1:18 PM) MCH [27.0-31.0 pg] 30.3 pg (03/02/15 1:18 PM) MCHC [32.0-36.0 34.7 g/dL g/dL] (03/02/15 1:18 PM) RDW [11.5-14.5 %] 14.4 % (03/02/15 1:18 PM) Platelet [133-450 216 K/CMM K/CMM] (03/02/15 1:18 PM) MPV [7.4-10.4 fL] 7.6 fL (03/02/15 1:18 PM) Segs [45.0-75.0 %] 67.6 % (03/02/15 1:18 PM) Lymphocytes 20.2 % [20.0-40.0 %] (03/02/15 1:18 PM) Monocytes [2.0-12.0 10.5 % %] (03/02/15 1:18 PM) Eosinophils [0.0-4.0 0.7 % %] (03/02/15 1:18 PM) Basophils [0.0-1.0 1.0 % %] (03/02/15 1:18 PM) Segs-Bands # 4.0 K/CMM [1.5-8.1 K/CMM] (03/02/15 1:18 PM) Lymphocytes # 1.2 K/CMM [1.0-5.5 K/CMM] (03/02/15 1:18 PM) Monocytes # [0.0-0.8 0.6 K/CMM K/CMM] (03/02/15 1:18 PM) Basophils # [0.0-0.2 0.1 K/CMM K/CMM] (03/02/15 1:18 PM) PT [12.0-14.7 14.4 seconds seconds] (03/02/15 1:18 PM) INR [0.85-1.17] 1.11 3 (03/02/15 1:18 PM) PTT [22.9-35.8 39.9 seconds 4 seconds] *HI* (03/02/15 1:18 PM) 3Interpretive Data: RECOMMENDED RANGES FOR PROTIME INR: [...] History Type Response Smoking Status Former smoker; Exposure to Tobacco Smoke None; Cigarette Smoking Last 365 Days No; Reg Smoking Cessation Counseling No Assessment and Plan No data available for this section
[2019-04-16] MEDS ORDERED: ONDANSETRON HCL INJ 2MG/ML 2ML 2 MG/ML VIAL IV STA (15:32)
[2019-04-16] MEDS ORDERED: PANTOPRAZOLE 40 MG 10ML VIAL IV STA (15:32)
[2019-04-16] MEDS ORDERED: POLYETHYLENE GL17 GM PO (15:45)
[2019-04-16] MEDS ORDERED: TRADJENTA5 MG PO (15:45)
[2019-04-16] MEDS ORDERED: IFEREX 150150 MG PO (15:45)
[2019-04-16] MEDS ORDERED: LACTULOSE20 GM/30 M PO (15:45)
[2019-04-16] MEDS ORDERED: ATORVASTATIN CA20 MG PO (15:45)
[2019-04-16] MEDS ORDERED: AMLODIPINE BESYL5 MG PO (15:45)
[2019-04-16] MEDS ORDERED: SODIUM CHLORIDE 0.9% 500ML 500 ML IV ONE (15:45)
[2019-04-16] MEDS ORDERED: FLOMAX0.4 MG PO (15:45)
[2019-04-16] MEDS ORDERED: SYNTHROID125 MCG PO (15:45)
[2019-04-16] MEDS ORDERED: METFORMIN HCL500 MG PO (15:45)
[2019-04-16] MEDS ORDERED: HYDROCHLOROTH12.5 M1 PO (15:49)
[2019-04-16] MEDS ORDERED: LISINOPRIL10 MG PO (15:49)
[2019-04-16 15:55] LABS: BASOPHILS % 0.5 % (0.0-1.0); EOSINOPHILS % 0.5 % (0.0-6.0); HEMATOCRIT 30.9 % (38.2-49.6); HEMOGLOBIN 10.5 g/dL (14.0-18.0); LYMPHOCYTES # (AUTO) 1.5 (1.0-3.2); LYMPHOCYTES % 19.7 % (18.0-39.1); MEAN CORPUSCULAR HEMOGLOBIN 29.2 pg (28-32); MEAN CORPUSCULAR VOLUME 86.1 fL (81-99); MONOCYTES % 13.3 % (4.4-11.3); NEUTROPHILS # (AUTO) 5.1 (2.1-6.9); NEUTROPHILS % 65.7 % (38.7-80.0); PLATELET COUNT 370 x10e3/uL (140-360); RED BLOOD COUNT 3.59 x10e6/uL (4.3-5.7); RED CELL DISTRIBUTION WIDTH 13.4 % (11.7-14.4)
[2019-04-16 15:59] LABS: BILIRUBIN,URINE NEGATIVE (NEGATIVE); CLARITY,URINE CLOUDY (CLEAR); COLOR,URINE YELLOW (YELLOW); KETONES,URINE NEGATIVE (NEGATIVE); LEUKOCYTE ESTERASE ,URINE MODERATE (NEGATIVE); NITRITE,URINE NEGATIVE (NEGATIVE); PROTEIN,URINE DIPSTICK 2+ (NEGATIVE); URINE UROBILINOGEN 0.2 mg/dL (0.2 - 1)
[2019-04-16 16:04] LABS: INR 0.97; PROTHROMBIN TIME 13.4 seconds (11.9-14.5)
[2019-04-16 16:05] LABS: PARTIAL THROMBOPLASTIN TIME 37.6 seconds (23.8-35.5)
[2019-04-16 16:11] LABS: ALBUMIN 3.7 g/dL (3.5-5.0); ALBUMIN/GLOBULIN RATIO 0.9 (0.8-2.0); ANION GAP 16.7 mmol/L (8-16); CALCIUM 9.2 mg/dL (8.4-10.2); CREATININE, SERUM 1.59 mg/dL (0.72-1.25); POTASSIUM 4.7 mmol/L (3.5-5.1)
[2019-04-16 16:12] LABS: EPITHELIAL CELLS,URINE FEW /LPF; WBC,URINE (MAN) >50 /HPF (0-5)
[2019-04-16 16:21] LABS: MAGNESIUM 1.5 MG/DL (1.3-2.1)
[2019-04-16 16:47] LABS: CREATINE KINASE MB 1.8 ng/mL (0-5.0); THYROID STIMULATING HORMONE 1.905 uIU/mL (0.350-4.940)
--- NOTE | 2019-04-16 18:00 | NUR ---
pt became anxious about ct scan thinking it was an mri and stated desire to leave [facility]; pt began to take gown off to put on his own clothes saying he had to get out of here; nurse tells pt he will get md to speak to pt before he leaves; md speaks to pt and explains that it is not an mri but a ct scan and explains the difference to the pt and also tells pt if he feels anxious about it he will cancel ct scan and explains to pt the benefits of staying in hosp and risks of leaving [facility]; pt agrees to stay
--- NOTE | 2019-04-16 18:03 | Diagnostic Imaging Report ---
Examination: Single AP view of the chest. COMPARISON: None. INDICATION: Anxiety, lack of appetite, constipation IMPRESSION: 1. Lines and Tubes: None 2. Lungs are grossly clear. No consolidation or effusion. 3. Cardiomediastinal silhouette is normal. Pulmonary vasculature is normal. 4. No acute bony abnormalities. Signed by: Dr. Aren Lagunas M.D. on 04/16/2019 6:00 PM
[2019-04-16] MEDS: CEFTRIAXONE SOD 1 GM/NS 50 ML 50 ML IV SCH (18:13)
[2019-04-16] MEDS ORDERED: TEMAZEPAM 15 MG CAP PO PRN (18:15)
[2019-04-16] MEDS ORDERED: ONDANSETRON HCL INJ 2MG/ML 2ML 2 MG/ML VIAL IV PRN (18:15)
[2019-04-16] MEDS ORDERED: ZOLPIDEM TARTRATE 5 MG TAB PO PRN (18:15)
[2019-04-16] MEDS: SODIUM CHLORIDE 0.9% 1000ML 1,000 ML IV SCH (18:17)
--- OUTSIDE RECORDS SUMMARY | 2019-04-16 18:32 | XMS REPORT | Clinical Summary ---
Author Author [facility] Address Unknown Phone Unavailable Care Team Providers Care Roadmaster Name Role Phone Asked, None Given PCP [...] more information, lupillo e contact: Guanakito Tan [address] [place] [address]
--- OUTSIDE RECORDS SUMMARY | 2019-04-16 18:33 | XMS REPORT | Continuity of Care Document ---
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 [facility] CHEM PANEL Sodium Lvl 134 135 - 145 03/02/2015 [facility] CHEM PANEL Potassium Lvl 4.5 3.5 - 5.1 03/02/2015 [facility] CHEM PANEL Chloride Lvl 102 95 - 109 03/02/2015 [facility] CHEM PANEL Creatinine Lvl 1.2 0.5 - 1.4 03/02/2015 [facility] CHEM PANEL Albumin Lvl 3.5 3.5 - 5.0 03/02/2015 [facility] CHEM PANEL Total Protein 8.3 6.4 - 8.4 03/02/2015 [facility] CHEM PANEL Calcium Lvl 8.5 8.5 - 10.5 03/02/2015 [facility] CHEM PANEL CO2 23 24 - 32 03/02/2015 [facility] CHEM PANEL BUN 20 7 - 22 03/02/2015 [facility] CHEM PANEL Glucose Lvl 121 70 - 99 03/02/2015 <sup>2</sup>Interpretive Data: Adult reference range values reflect the clinical guidelines
of the [place] [employer]. [facility] CHEM PANEL ALT 10 0 - 65 03/02/2015 [facility] CHEM PANEL Bili Total 0.3 0.2 - 1.3 03/02/2015 [facility] CHEM PANEL Alk Phos 109 39 - 136 03/02/2015 [facility] CHEM PANEL AST 12 0 - 37 03/02/2015 [facility] HEMATOLOGY PTT 39.9 22.9 - 35.8 03/02/2015 <sup>4</sup>Interpretive Data: Heparin Therapeutic Range: 57 - 92 [facility] INR 1.11 0.85 - 1.17 03/02/2015 <sup>3</sup>Interpretive Data: RECOMMENDED RANGES FOR PROTIME INR:
2.0-3.0 for most medical and surgical thromboembolic states.
2.5-3.5 for artificial heart valves and recurrent embolism.

INR SHOULD BE USED ONLY FOR PATIENTS ON STABLE ANTICOAGULANT THERAPY. [facility] PT 14.4 12.0 - 14.7 03/02/2015 [facility] RBC 3.31 4.70 - 6.10 03/02/2015 [facility] Hgb 10.0 14.0 - 18.0 03/02/2015 [facility] WBC 5.9 3.7 - 10.4 03/02/2015 [facility] MCV 87.5 80.0 - 94.0 03/02/2015 [facility] MCH 30.3 27.0 - 31.0 03/02/2015 [facility] Hct 29.0 42.0 - 54.0 03/02/2015 [facility] MCHC 34.7 32.0 - 36.0 03/02/2015 [facility] Platelet 216 133 - 450 03/02/2015 [facility] RDW 14.4 11.5 - 14.5 03/02/2015 [facility] MPV 7.6 7.4 - 10.4 03/02/2015 [facility] Segs 67.6 45.0 - 75.0 03/02/2015 [facility] Lymphocytes 20.2 20.0 - 40.0 03/02/2015 [facility] Monocytes 10.5 2.0 - 12.0 03/02/2015 [facility] Eosinophils 0.7 0.0 - 4.0 03/02/2015 [facility] Basophils 1.0 0.0 - 1.0 03/02/2015 [facility] Segs-Bands # 4.0 1.5 - 8.1 03/02/2015 [facility] Lymphocytes # 1.2 1.0 - 5.5 03/02/2015 [facility] Basophils # 0.1 0.0 - 0.2 03/02/2015 [facility] Monocytes # 0.6 0.0 - 0.8 03/02/2015 [facility] URINE AND STOOL UA Color Red 12/18/2014 [facility] URINE AND STOOL UA Urobilinogen <=1.0 mg/dL 0.1 - 1.0 12/18/2014 [facility] URINE AND STOOL UA Sq Epi None Seen 12/18/2014 [facility] URINE AND STOOL UA RBC >182 0 - 2 12/18/2014 [facility] URINE AND STOOL UA Bacteria Occasional /HPF None Seen /HPF 12/18/2014 [facility] URINE AND STOOL UA WBC >182 0 - 5 12/18/2014 [facility] URINE AND STOOL UA Leuk Est Small *ABN* (12/18/14 11:02 AM) Negative 12/18/2014 [facility] URINE AND STOOL UA Spec Grav 1.006 <=1.030 12/18/2014 [facility] URINE AND STOOL UA Turbidity Marked *ABN* (12/18/14 11:02 AM) Clear 12/18/2014 [facility] URINE AND STOOL UA Nitrite Negative (12/18/14 11:02 AM) Negative 12/18/2014 [facility] URINE AND STOOL UA Blood Large *ABN* (12/18/14 11:02 AM) Negative 12/18/2014 [facility] URINE AND STOOL UA Bili Negative *NA* (12/18/14 11:02 AM) Negative 12/18/2014 [facility] URINE AND STOOL UA Ketones Negative mg/dL Negative mg/dL 12/18/2014 [facility] URINE AND STOOL UA Protein 100 mg/dL Negative mg/dL 12/18/2014 [facility] URINE AND STOOL UA Glucose Negative mg/dL Negative mg/dL 12/18/2014 [facility] URINE AND STOOL UA pH 6.0 5.0 - 8.0 12/18/2014 [facility] ELECTROLYTES AGAP 12.1 10.0 - 20.0 12/18/2014 [facility] ELECTROLYTES eGFR 51 12/18/2014 <sup>1</sup>Result Comment: [...] should be multiplied by the estimated BMI. [facility] ELECTROLYTES Glucose Lvl 153 70 - 99 12/18/2014 <sup>2</sup>Interpretive Data: Adult reference range values reflect the clinical guidelines
of the [place] [employer]. [facility] ELECTROLYTES Creatinine Lvl 1.3 0.5 - 1.4 12/18/2014 [facility] ELECTROLYTES BUN 19 7 - 22 12/18/2014 [facility] ELECTROLYTES Chloride Lvl 96 95 - 109 12/18/2014 [facility] ELECTROLYTES Potassium Lvl 4.1 3.5 - 5.1 12/18/2014 [facility] ELECTROLYTES Sodium Lvl 127 135 - 145 12/18/2014 [facility] ELECTROLYTES CO2 23 24 - 32 12/18/2014 [facility] ELECTROLYTES Calcium Lvl 8.9 8.5 - 10.5 12/18/2014 [facility] HEMATOLOGY Basophils 0.7 0.0 - 1.0 12/18/2014 [facility] HEMATOLOGY Eosinophils 0.3 0.0 - 4.0 12/18/2014 [facility] HEMATOLOGY Lymphocytes 18.6 20.0 - 40.0 12/18/2014 [facility] Monocytes 8.0 2.0 - 12.0 12/18/2014 [facility] HEMATOLOGY Segs 72.4 45.0 - 75.0 12/18/2014 [facility] HEMATOLOGY Monocytes # 0.7 0.0 - 0.8 12/18/2014 [facility] Lymphocytes # 1.5 1.0 - 5.5 12/18/2014 [facility] Segs-Bands # 6.0 1.5 - 8.1 12/18/2014 [facility] HEMATOLOGY Basophils # 0.1 0.0 - 0.2 12/18/2014 [facility] PTT 34.0 22.9 - 35.8 12/18/2014 <sup>4</sup>Interpretive Data: Heparin Therapeutic Range: 57 - 92 [facility] HEMATOLOGY PT 14.0 12.0 - 14.7 12/18/2014 [facility] INR 1.08 0.85 - 1.17 12/18/2014 <sup>3</sup>Interpretive Data: RECOMMENDED RANGES FOR PROTIME INR:
2.0-3.0 for most medical and surgical thromboembolic states.
2.5-3.5 for artificial heart valves and recurrent embolism.

INR SHOULD BE USED ONLY FOR PATIENTS ON STABLE ANTICOAGULANT THERAPY. [facility] HEMATOLOGY Hct 30.6 42.0 - 54.0 12/18/2014 [facility] HEMATOLOGY Hgb 10.2 14.0 - 18.0 12/18/2014 [facility] HEMATOLOGY MCV 88.4 80.0 - 94.0 12/18/2014 [facility] MCHC 33.4 32.0 - 36.0 12/18/2014 [facility] MCH 29.5 27.0 - 31.0 12/18/2014 [facility] HEMATOLOGY Platelet 182 133 - 450 12/18/2014 [facility] HEMATOLOGY RDW 14.3 11.5 - 14.5 12/18/2014 [facility] MPV 8.3 7.4 - 10.4 12/18/2014 [facility] WBC 8.3 3.7 - 10.4 12/18/2014 [facility] RBC 3.47 4.70 - 6.10 12/18/2014 [facility] CHEMISTRY Chloride Lvl 101 95 - 109 12/23/2011 Normal [facility] CHEMISTRY CO2 26 24 - 32 12/23/2011 Normal [facility] CHEMISTRY Calcium Lvl 8.6 8.5 - 10.5 12/23/2011 Normal [facility] CHEMISTRY Glucose Lvl 205 70 - 99 12/23/2011 CT <sup>1</sup>Interpretive Data: Adult reference range values reflect the clinical guidelines of the [place] [employer]. [facility] CHEMISTRY BUN 23 7 - 22 12/23/2011 [facility] CHEMISTRY Sodium Lvl 138 135 - 145 12/23/2011 Normal [facility] CHEMISTRY Potassium Lvl 4.2 3.5 - 5.1 12/23/2011 Normal [facility] CHEMISTRY Creatinine Lvl 1.5 0.5 - 1.4 12/23/2011 [facility] CHEMISTRY AGAP 15.2 10.0 - 20.0 12/23/2011 Normal [facility] HEMATOLOGY PTT 41.7 22.9 - 35.8 12/23/2011 [facility] <sup>3</sup>Interpretive Data: Heparin Therapeutic Range: 57 - 92 [facility] HEMATOLOGY PT 13.4 12.0 - 14.7 12/23/2011 Normal [facility] HEMATOLOGY INR 1.02 0.85 - 1.17 12/23/2011 [facility] <sup>2</sup>Interpretive Data: RECOMMENDED RANGES FOR PROTIME INR: 2.0-3.0 for most medical and surgical thromboembolic states. 2.5-3.5 for artificial heart valves and recurrent embolism. INR SHOULD BE USED ONLY FOR PATIENTS ON STABLE ANTICOAGULANT THERAPY. [facility] HEMATOLOGY MPV 8.7 7.4 - 10.4 12/23/2011 Normal [facility] HEMATOLOGY Platelet 199 133 - 450 12/23/2011 [facility] HEMATOLOGY Hct 28.1 42.0 - 54.0 12/23/2011 [facility] HEMATOLOGY MCV 85.5 80.0 - 94.0 12/23/2011 [facility] HEMATOLOGY RDW 14.3 11.5 - 14.5 12/23/2011 Normal [facility] HEMATOLOGY MCHC 33.3 32.0 - 36.0 12/23/2011 [facility] HEMATOLOGY MCH 28.4 27.0 - 31.0 12/23/2011 [facility] HEMATOLOGY Hgb 9.4 14.0 - 18.0 12/23/2011 [facility] HEMATOLOGY RBC 3.29 4.70 - 6.10 12/23/2011 [facility] HEMATOLOGY WBC 8.1 3.7 - 10.4 12/23/2011 Normal [facility] HEMATOLOGY Monocytes # 0.7 0.0 - 0.8 12/23/2011 [facility] HEMATOLOGY Segs-Bands # 6.1 1.5 - 8.1 12/23/2011 [facility] HEMATOLOGY Lymphocytes # 1.1 1.0 - 5.5 12/23/2011 [facility] HEMATOLOGY Lymphocytes 13.1 20.0 - 40.0 12/23/2011 [facility] HEMATOLOGY Monocytes 8.9 2.0 - 12.0 12/23/2011 [facility] HEMATOLOGY Segs 76.1 45.0 - 75.0 12/23/2011 [facility] HEMATOLOGY Eosinophils # 0.1 0.0 - 0.5 12/23/2011 Normal [facility] HEMATOLOGY Basophils # 0.1 0.0 - 0.2 12/23/2011 Normal [facility] HEMATOLOGY Basophils 0.9 0.0 - 1.0 12/23/2011 Normal [facility] HEMATOLOGY Eosinophils 1.0 0.0 - 4.0 12/23/2011 Normal [facility] Pathology Reports No Data Provided for This [...] IMPRESSION: Right epididymitis with complex right hydrocele. [id number] 02/15/2017 [facility] ED Abdomen/Pelvis IV contrast only CT [...] postcontrast images were obtained. CT Radiation Dose: AZP=3697 mGy-cm FINDINGS: SOLID ORGANS: No acute CT [...] with reactive lymph node prominence. 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 abdominal pain, [...] for pyelonephritis is recommended. SL: [id number] 07/24/2016 [facility] Chest 2 views DX EXAM: XR CHEST 2 VIEW DATE: 07/23/2016 7:30 PM [employer] INDICATION: Chest pain COMPARISON: December 23, 2011 [...] a developing infection or subsegmental atelectasis. SL: [id number] 07/23/2016 [facility] Consultation Notes No Data Provided for This Section Discharge Summaries No Data Provided for This Section History and Physicals No Data Provided for This Section Vital Signs Vital Sign Value Date Comments Source Heart Rate 101 02/16/2017 [facility] Systolic (mm Hg) 149 02/16/2017 [facility] [...] 18 02/16/2017 [facility] Respitory Rate 16 02/16/2017 [facility] Temperature Oral (F) 98.5 F 02/16/2017 [facility] BMI Calculated 24.53 02/15/2017 [facility] Height 170.18 cm 02/15/2017 [facility] Weight 71.045 02/15/2017 [facility] Height 170.18 cm 02/15/2017 [facility] BMI Calculated 24.64 02/15/2017 [facility] Weight 71.364 02/15/2017 [facility] Respitory Rate 18 07/25/2016 [facility] Systolic (mm Hg) 131 07/25/2016 [facility] Diastolic (mm Hg) 83 07/25/2016 [facility] Heart Rate 71 07/25/2016 [facility] Temperature Oral (F) 98.5 F 07/25/2016 [facility] Respitory Rate 18 07/25/2016 [facility] Temperature Oral (F) 98.2 F 07/25/2016 [facility] Heart Rate 77 07/25/2016 [facility] Systolic [...] 03/02/2015 [facility] Respitory Rate 18 03/02/2015 [facility] Temperature Oral (F) 97 F 03/02/2015 [facility] Systolic (mm Hg) 153 03/02/2015 [facility] Diastolic (mm Hg) 70 03/02/2015 [facility] Heart Rate 74 03/02/2015 [facility] Respitory Rate 19 03/02/2015 [facility] Systolic (mm Hg) 141 03/02/2015 [facility] Diastolic (mm Hg) 70 03/02/2015 [facility] Respitory Rate 17 03/02/2015 [facility] Heart Rate 78 03/02/2015 [facility] Weight 70.455 03/02/2015 [facility] BMI Calculated 24.33 03/02/2015 [facility] Temperature Oral (F) 98.6 F 03/02/2015 [facility] Height 170.18 cm 03/02/2015 [facility] Systolic (mm Hg) 149 12/18/2014 [facility] Diastolic (mm Hg) 71 12/18/2014 [facility] Temperature Oral (F) 98.0 F 12/18/2014 [facility] Respitory Rate 17 12/18/2014 [facility] Respitory Rate 17 12/18/2014 [facility] Systolic (mm Hg) 127 12/18/2014 [facility] Diastolic (mm Hg) 89 12/18/2014 [facility] Heart Rate 99 12/18/2014 [facility] Respitory Rate 18 12/18/2014 [facility] Systolic (mm Hg) 153 12/18/2014 [facility] Diastolic (mm Hg) 70 12/18/2014 [facility] Weight 67.273 12/18/2014 [facility] BMI Calculated 23.23 12/18/2014 [facility] Height 170.18 cm 12/18/2014 [facility] Temperature Oral (F) 97.8 F 12/18/2014 [facility] Heart Rate 106 12/18/2014 [facility] Height 172.72 cm 09/16/2012 [facility] Weight 72.727 09/16/2012 [facility] Weight 80.000 12/23/2011 [facility] Height 172.72 cm 12/23/2011 [facility] Encounters Location Location Details Encounter Type Encounter Number Reason For Visit Attending Provider ADM Date DC Date Status Source [facility] Emergency [id number] GRIFFIN ALMANZA 12/23/2011 12/23/2011 Discharged [facility] Emergency [id number] FIFI KARLEE 09/16/2012 09/16/2012 Discharged [facility] Center [id number] Tripp Rob 12/18/2014 12/18/2014 [facility] Center [id number] Yany Anderson 03/02/2015 03/03/2015 [facility] Inpatient [id number] Geovanni Godinez 07/24/2016 07/25/2016 [facility] Inpatient [id number] Geovanni Godinez 02/15/2017 02/16/2017 [facility] Procedures Procedure Code Date Perfomer Comments Source Cholecystectomy [id number] [facility] Prostate manipulation [id number] [facility] Assessment and Plan Assessment and Plan [...] further Urologic intervention at this time. 02/16/2017 [facility] Plan of Care No Data Provided for This Section Social History Social History Date Source Social History TypeResponse Substance Abuse Use: None. Alcohol Past Smoking Status Former smoker; Number of years: 20; Exposure to Tobacco Smoke None; Cigarette Smoking Last 365 Days No; Reg Smoking Cessation Counseling No 02/15/2017 [facility] Family History No Data Provided for This Section Advance Directives No Data Provided for This Section Functional Status No Data Provided for This Section
--- NOTE | 2019-04-16 19:54 | NUR ---
report given to garrick joseph
[2019-04-16 20:00] VITALS: BP 174/78
[2019-04-16 20:22] VITALS: BP 174/78
--- NOTE | 2019-04-16 20:22 | NUR ---
RECEIVED PATIENT FROM ER VIA STRETCHER, PATIENT AMBULATED TO BED. FAMILY MEMBERS AT BEDSIDE, STAYING THE NIGHT. NO PAIN REPORTED. LUNG SOUNDS CLEAR. BOWEL SOUNDS NORMAL, PATIENT STATES HE HAS NOT HAD THE DESIRE TO EAT IN SEVERAL DAYS, WHICH HAS LED TO A 5 POUND WEIGHT LOSS, NO BM FOR 3 DAYS, AND LITTLE TO NO GAS. SKIN IS INTACT. +1 PITTING EDEMA NOTED TO BILATERAL ANKLES. R AC 18G IV IS ASYMPTOMATIC, INTACT, AND PATENT, WITH NS RUNNING AT 75 ML/HR. NO S&S OF DISTRESS NOTED. PATIENT ORIENTED TO ROOM. TOLD PATIENT TO CALL IF HE NEEDS TO USE THE RESTROOM SO WE CAN ASSIST HIM. PATIENT VERBALIZED UNDERSTANDING. BED LOCKED IN LOWEST POSITION, SIDE RAILS UPX2, CALL LIGHT IN REACH.
[2019-04-16 21:28] VITALS: BP 174/78
[2019-04-17] VITALS (8 sets, daily range): BP systolic 120–160; BP diastolic 56–70
[2019-04-17 02:29] LABS: CREATINE KINASE MB 1.5 ng/mL (0-5.0)
[2019-04-17 05:35] LABS: BASOPHILS # (AUTO) 0.1 (0.0-0.1); BASOPHILS % 0.7 % (0.0-1.0); EOSINOPHILS # (AUTO) 0.1 (0.0-0.4); EOSINOPHILS % 1.6 % (0.0-6.0); HEMATOCRIT 29.3 % (38.2-49.6); HEMOGLOBIN 10.1 g/dL (14.0-18.0); LYMPHOCYTES # (AUTO) 1.2 (1.0-3.2); LYMPHOCYTES % 16.7 % (18.0-39.1); MEAN CORPUSCULAR HEMOGLOBIN 29.5 pg (28-32); MEAN CORPUSCULAR HGB CONC 34.5 g/dL (31-35); MEAN CORPUSCULAR VOLUME 85.7 fL (81-99); MONOCYTES # (AUTO) 1.1 (0.2-0.8); MONOCYTES % 14.8 % (4.4-11.3); NEUTROPHILS # (AUTO) 4.8 (2.1-6.9); NEUTROPHILS % 65.8 % (38.7-80.0); PLATELET COUNT 328 x10e3/uL (140-360); RED BLOOD COUNT 3.42 x10e6/uL (4.3-5.7); RED CELL DISTRIBUTION WIDTH 13.4 % (11.7-14.4)
[2019-04-17] MEDS: CEFTRIAXONE SOD 1 GM/NS 50 ML 50 ML IV SCH ×2 (05:48→17:25)
[2019-04-17 05:58] LABS: CREATINE KINASE MB 1.7 ng/mL (0-5.0)
--- NOTE | 2019-04-17 06:09 | NUR ---
PATIENT RESTING IN BED, STATES HE SLEPT WELL THROUGH THE NIGHT AND IS FEELING MUCH BETTER THAN YESTERDAY. NO PAIN REPORTED. NO S&S OF DISTRESS NOTED.
[2019-04-17 06:18] LABS: ALBUMIN 3.1 g/dL (3.5-5.0); ALBUMIN/GLOBULIN RATIO 0.9 (0.8-2.0); ANION GAP 12.3 mmol/L (8-16); CALCIUM 8.8 mg/dL (8.4-10.2); CREATININE, SERUM 1.38 mg/dL (0.72-1.25); POTASSIUM 4.3 mmol/L (3.5-5.1)
--- NOTE | 2019-04-17 07:19 | NUR ---
RECEIVED PATIENT AWAKE RESTING IN BED NO SIGNS OF DISTRESS. BED LOW, WHEELS LOCKED, SIDE RAILS X2. CALL LIGHT IN REACH, AT BEDSIDE, WILL CONTINUE TO MONITOR PATIENT.
[2019-04-17] MEDS: NON-FORMULARY MEDICATION (Linagliptin (Tradjenta) 5 MG) PO SCH (09:00)
--- NOTE | 2019-04-17 09:20 | NUR ---
PATIENT A/O X3, EVEN RESPIRATIONS ON RA. BOWEL SOUNDS ACTIVE. LUNG SOUNDS CLEAR TO AUSCULTATION. PATIENT AMBULATES WITH STANDBY ASSIST. TELEMETRY #2 SR. 1+ NON-PITTING EDEMA TO DEVEN. ANKLES. RIGHT AC 18 GAUGE IV WITH NS @ 75 CC/HR. IV INTACT AND PATENT. SKIN INTACT. NO PAIN OR DISCOMFORT AT THIS TIME. VITAL SIGNS STABLE. CALL LIGHT IN REACH. AT BEDSIDE WILL CONTINUE TO MONITOR PATIENT.
[2019-04-17] MEDS: TAMSULOSIN HCL 0.4 MG CAP PO SCH (09:42)
[2019-04-17] MEDS: SODIUM CHLORIDE 0.9% 1000ML 1,000 ML IV SCH (09:42)
[2019-04-17] MEDS ORDERED: DIATRIZOATE MEGL/DIATRIZOA SOD 30 ML BTL PO ONE (10:20)
--- NOTE | 2019-04-17 11:26 | History and Physical ---
PRIMARY CARE PHYSICIAN: Dr. Jonna Null. CHIEF COMPLAINT: Generalized weakness, nausea, vomiting, anorexia. HISTORY OF PRESENT ILLNESS: The patient is an 83-year-old male had TURP and cystoscopy procedures recently. Subsequently, the patient was having some problem with respect to anorexia. The patient also has some nausea, came to see his doctor was giving some sort of medication for his abdominal discomfort. Subsequently, the patient was having problem with the medication, came back to his doctor again, was given something [id number] for constipation. Subsequently, the patient became quite weak, came to the emergency room, found to have a very low sodium level of 119. He is also slightly dehydrated. BUN and creatinine of 15 and 1.6. The patient was placed in the hospital, given IV Rocephin and also normal saline. PAST MEDICAL HISTORY: Enlarged prostate status post TURP procedures. Hypertension, diabetes type 2, dyslipidemia, chronic off and on constipation. PAST SURGICAL HISTORY: TURP. Cholecystectomy. SOCIAL HISTORY: The patient lives with his , very well supported family. No smoking. No alcohol. No recreational drugs. ALLERGIES: NO KNOWN ALLERGIES. HOME MEDICATIONS: List is reviewed. REVIEW OF SYSTEMS: As above. PHYSICAL EXAMINATION: VITAL SIGNS: Temperature is 97, blood pressure 135/63, pulse rate 75, respirations 18. GENERAL: The patient is not in acute distress. HEENT: Normocephalic, atraumatic. Anicteric. NECK: Supple grossly. PULMONARY: Diminished breath sounds. CARDIOVASCULAR: Regular rate and rhythm. ABDOMEN: Soft. EXTREMITIES: No cyanosis or edema. NEUROLOGIC: No gross focal deficit. LABORATORY DATA: Sodium is 119, potassium 4.7, chloride 85, bicarb 22, BUN 15, creatinine 1.6, glucose is 106. Urinalysis is greater than 50 wbc's, 2+ protein, cloudy urine. WBC is 7.7, hemoglobin 10.5, hematocrit 31, and platelets is 370. Chest x-ray unremarkable. IMPRESSION: 1. Possible early prostatitis. 2. Hyponatremia. 3. Dehydration. 4. Recent TURP done by one of the urologists outpatient. PLAN: Continue with normal saline. IV Rocephin. Home medication with some adjustment. Start the patient on Remeron 15 mg at night. We will monitor the patient closely. MD DAMIR Polanco/EDWARD /[id number]
--- NOTE | 2019-04-17 12:44 | Diagnostic Imaging Report ---
EXAM: CT Abdomen and Pelvis WITHOUT intravenous contrast INDICATION: Abdominal pain COMPARISON: None. TECHNIQUE: Abdomen and pelvis were scanned utilizing a multidetector helical scanner from the lung base to the pubic symphysis without administration of IV contrast. Coronal and sagittal reformations were obtained. IV CONTRAST: None ORAL CONTRAST: Gastrografin COMPLICATIONS: None RADIATION DOSE: Total DLP: 649.0 mGy*cm Dose modulation, iterative reconstruction, and/or weight based adjustment of the mA/kV was utilized to reduce the radiation dose to as low as reasonably achievable. FINDINGS: LOWER THORAX: Mild bibasilar dependent subsegmental atelectasis. No focal consolidation. Atherosclerotic coronary artery calcifications. HEPATOBILIARY: No focal hepatic lesions. Status post cholecystectomy. SPLEEN: No splenomegaly. PANCREAS: No focal masses or ductal dilatation. ADRENALS: No adrenal nodules. KIDNEYS/URETERS: No hydronephrosis or renal calculi. Scattered subcentimeter hypodensities in both kidneys are indeterminate on this noncontrast enhanced study but likely represent cysts. PELVIC ORGANS/BLADDER: Coarse calcifications in the prostate, which indents the bladder posteroinferiorly. PERITONEUM / RETROPERITONEUM: No free air or fluid. LYMPH NODES: Scattered prominent retroperitoneal, bilateral femoral, and left pelvic sidewall lymph nodes not meeting size criteria for lymphadenopathy. VESSELS: Diffuse atherosclerotic calcifications of the abdominal aorta and major branches. 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 GI TRACT: Extensive diverticulosis involving the entire colon including the right colon. No CT evidence of diverticulitis. No abnormal bowel wall thickening. No bowel obstruction. Normal appendix. BONES AND SOFT TISSUES: Large indirect left inguinal hernia containing a loop of sigmoid colon. Diffuse osteopenia. No acute osseous injury. Degenerative changes of the visualized spine. Grade 1 retrolisthesis at L2-3. IMPRESSION: Extensive diverticulosis involving the entire colon including the right colon with no CT evidence of diverticulitis. Large left indirect inguinal hernia containing a loop of sigmoid colon. Diffuse atherosclerotic vascular calcifications including of the coronary arteries. 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 Signed by: Haroon Conte MD on 04/17/2019 12:41 PM
--- NOTE | 2019-04-17 15:15 | NUR ---
Nutrition Intervention Note RD Recommendation(s) for Physician: -Continue diet as ordered -Rec Glucerna BID to increase protein-calorie intake -The patient meets criteria for unspecified SEVERE protein-calorie malnutrition. Plan of Care: RD following, monitoring for tolerance and adequacy, ONS rec Nutrition reason for involvement: Nutrition Risk Trigger MST RD Assessment 04/17 83yo M, who was admitted for dehydration. Na level has improved. Visited pt in the room. Pt reported poor appetite for over a week with 5lbs weight loss. Pt stated my appetite has improved since I have been here. No complains of nausea or vomiting today. Pt has some missing teeth but refused texture modification. Pt denied any swallowing difficulty. Pt has mild muscle/ fat loss upon NFPA. RD discussed menu options with pt and obtained food preferences. Pt also willing to try Glucerna. Will continue to monitor and follow. Principal Problems/Diagnoses: 1. Possible early prostatitis. 2. Hyponatremia. 3. Dehydration. 4. Recent TURP done by one of the urologists outpatient. PMH: Enlarged prostate status post TURP procedures. Hypertension, diabetes type 2, dyslipidemia, chronic off and on constipation. GI: abdomen soft, non-tender, round Skin: no pressure wound noted Labs: Na 127 L, creatinine 1.38 H, Glucose 157 H Meds: NaCl Ht: 68in Wt: 150lb BMI: 22.8kg/m2 IBW: 154lb +/- 10% Malnutrition Evaluation (04/17/2019) The patient meets criteria for unspecified SEVERE protein-calorie malnutrition. Energy intake: <50% of estimated energy requirements for >5 days Weight loss: >2% in 1week (Acute) Fat loss: Mild clavicle protrusion Muscle loss: Mild slight temporal depression Supporting Evidence: Fluid accumulation: none Functional Status: no changes Nutrition Prescription (Diet Order): ADA 1800 Estimated Nutritional Needs: Calories: 1700 2040kcal (25-30kcal/kg/d) Weight used: CBW Protein: 68 102g(1-1.5g/kg/d) Weight used: CBW Diet Adequacy: Meeting calorie needs, Not meeting protein needs Diet Education Needs Assessment: Diet education not indicated. Nutrition Care Level: mod Nutrition Diagnosis: Severe malnutrition related to acute illness as evidenced by <50% of estimated energy requirements for >5 days, >2% weight loss in 1week (Acute), and mild muscle/fat loss. Goal: Patient will meet 75-100% of estimated needs by follow up Progress: Progressing Interventions: Modified diet, Commercial beverage Monitoring/Evaluation: Total energy intake, Total protein intake, Modified diet, Liquid supplement, Weight change Signed: Marjorie Zamarripa MS, RD, LD
[2019-04-17 15:32] LABS: CREATINE KINASE MB 1.5 ng/mL (0-5.0)
--- NOTE | 2019-04-17 19:00 | NUR ---
RECEIVED PATIENT IN BEDSIDE REPORT. PATIENT STATES HE IS FEELING MUCH BETTER THAN YESTERDAY, BUT STILL WEAK, AND STILL HAS NOT HAD A BM. NO PAIN REPORTED. NO S&S OF DISTRESS NOTED. BED LOCKED IN LOWEST POSITION, SIDE RAILS UPX2, CALL LIGHT IN REACH.
[2019-04-17] MEDS: ATORVASTATIN 20 MG TAB PO SCH (20:27)
[2019-04-17] MEDS: MIRTAZAPINE 15 MG TAB PO SCH (20:27)
--- NOTE | 2019-04-17 21:47 | NUR ---
PATIENT ASSISTED OUT OF BED TO AMBULATE AT THIS TIME. PATIENT WEARING SHOES, USING IV POLE TO STAY STEADY. STEADY, SLOW GAIT NOTED.
[2019-04-18] VITALS (8 sets, daily range): BP systolic 125–161; BP diastolic 56–69
[2019-04-18] MEDS: SODIUM CHLORIDE 0.9% 1000ML 1,000 ML IV SCH (00:10)
[2019-04-18] MEDS: CEFTRIAXONE SOD 1 GM/NS 50 ML 50 ML IV SCH ×2 (06:09→17:23)
[2019-04-18 06:25] LABS: BASOPHILS # (AUTO) 0.1 (0.0-0.1); BASOPHILS % 1.1 % (0.0-1.0); EOSINOPHILS # (AUTO) 0.3 (0.0-0.4); EOSINOPHILS % 3.8 % (0.0-6.0); HEMATOCRIT 28.6 % (38.2-49.6); HEMOGLOBIN 9.4 g/dL (14.0-18.0); LYMPHOCYTES # (AUTO) 1.4 (1.0-3.2); LYMPHOCYTES % 21.5 % (18.0-39.1); MEAN CORPUSCULAR HEMOGLOBIN 28.8 pg (28-32); MEAN CORPUSCULAR HGB CONC 32.9 g/dL (31-35); MEAN CORPUSCULAR VOLUME 87.7 fL (81-99); MONOCYTES % 15.4 % (4.4-11.3); NEUTROPHILS # (AUTO) 3.8 (2.1-6.9); NEUTROPHILS % 57.9 % (38.7-80.0); PLATELET COUNT 302 x10e3/uL (140-360); RED BLOOD COUNT 3.26 x10e6/uL (4.3-5.7); RED CELL DISTRIBUTION WIDTH 13.7 % (11.7-14.4)
[2019-04-18] MEDS: LEVOTHYROXINE SODIUM 125 MCG TAB PO SCH (06:39)
[2019-04-18 06:50] LABS: ANION GAP 11.3 mmol/L (8-16); CALCIUM 8.5 mg/dL (8.4-10.2); CREATININE, SERUM 1.3 mg/dL (0.72-1.25); POTASSIUM 4.3 mmol/L (3.5-5.1)
--- NOTE | 2019-04-18 07:14 | NUR ---
RECEIVED PATIENT ASLEEP IN BED AT THIS TIME. NO SIGNS OF DISTRESS. BED LOW, WHEELS LOCKED, SIDE RAILS X2. AT BEDSIDE. CALL LIGHT IN REACH WILL CONTINUE TO MONITOR PATIENT.
[2019-04-18] MEDS: NON-FORMULARY MEDICATION (Linagliptin (Tradjenta) 5 MG) PO SCH (09:00)
--- NOTE | 2019-04-18 09:05 | NUR ---
PATIENT A/O X3, EVEN RESPIRATIONS ON RA. 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 RIGHT AC 18 GAUGE WITH NS @ 75 CC/HR. TELEMETRY #2 SR. NO PAIN OR DISCOMFORT AT THIS TIME. VITAL SIGNS STABLE. CALL LIGHT IN REACH, FAMILY AT BEDSIDE. WILL CONTINUE TO MONITOR PATIENT.
[2019-04-18] MEDS: TAMSULOSIN HCL 0.4 MG CAP PO SCH (09:15)
--- NOTE | 2019-04-18 13:15 | NUR ---
PATIENT HAD BOWEL MOVEMENT AT THIS TIME.
--- NOTE | 2019-04-18 13:25 | NUR ---
DR. CANDELARIO MAKING ROUNDS. ORDER TO D/C IV FLUIDS. CONTINUE ROCEPHIN Q12.
[2019-04-18] MEDS: MIRTAZAPINE 15 MG TAB PO SCH (21:00)
[2019-04-18] MEDS: ATORVASTATIN 20 MG TAB PO SCH (21:00)
[2019-04-19] VITALS: BP 174/77
--- NOTE | 2019-04-19 03:25 | NUR ---
ASSESSMENT DONE.NO RESP.DISTRESS.BED ALARM ON.BED LOCKED AND IN LOWEST POSITION.PHONE NAD CALL LIGHT WITHIN REACH.INSTRUCTED TO CALL FOR ASSISTANCE NEEDED.
[2019-04-19 04:00] VITALS: BP 121/56
[2019-04-19] MEDS: LEVOTHYROXINE SODIUM 125 MCG TAB PO SCH (06:05)
[2019-04-19] MEDS: CEFTRIAXONE SOD 1 GM/NS 50 ML 50 ML IV SCH (06:05)
[2019-04-19 06:06] LABS: BASOPHILS # (AUTO) 0.1 (0.0-0.1); BASOPHILS % 0.7 % (0.0-1.0); EOSINOPHILS # (AUTO) 0.3 (0.0-0.4); EOSINOPHILS % 4.2 % (0.0-6.0); HEMATOCRIT 28.1 % (38.2-49.6); LYMPHOCYTES # (AUTO) 1.3 (1.0-3.2); LYMPHOCYTES % 17.2 % (18.0-39.1); MEAN CORPUSCULAR HEMOGLOBIN 28.6 pg (28-32); MEAN CORPUSCULAR VOLUME 89.2 fL (81-99); MONOCYTES # (AUTO) 1.1 (0.2-0.8); MONOCYTES % 14.6 % (4.4-11.3); NEUTROPHILS # (AUTO) 4.8 (2.1-6.9); NEUTROPHILS % 62.8 % (38.7-80.0); PLATELET COUNT 281 x10e3/uL (140-360); RED BLOOD COUNT 3.15 x10e6/uL (4.3-5.7); RED CELL DISTRIBUTION WIDTH 14.1 % (11.7-14.4)
[2019-04-19 06:43] LABS: ANION GAP 13.6 mmol/L (8-16); CALCIUM 8.4 mg/dL (8.4-10.2); CREATININE, SERUM 1.38 mg/dL (0.72-1.25); POTASSIUM 4.6 mmol/L (3.5-5.1)
--- NOTE | 2019-04-19 07:03 | NUR ---
BED SIDE SHIFT REPORT GIVEN TO THE ONCOMING RN.WALKING ROUNDS DONE.STABLE CONDITION.
--- NOTE | 2019-04-19 07:33 | NUR ---
RECEIVED PATIENT RESTING IN BED NO SIGNS OF DISTRESS. BED LOW, WHEELS LOCKED, SIDE RAILS X2. CALL LIGHT IN REACH. WILL CONTINUE TO MONITOR PATIENT.
[2019-04-19 08:19] VITALS: BP 100/48
[2019-04-19] MEDS: NON-FORMULARY MEDICATION (Linagliptin (Tradjenta) 5 MG) PO SCH (09:00)
[2019-04-19] MEDS: TAMSULOSIN HCL 0.4 MG CAP PO SCH (09:03)
[2019-04-19 09:04] VITALS: BP 100/48
[2019-04-19] MEDS ORDERED: CIPRO500 MG PO (09:31)
--- NOTE | 2019-04-19 09:40 | NUR ---
REMOVED PATIENTS IV. CATHETER TIP INTACT AND PRESSURE DRESSING APPLIED
--- NOTE | 2019-04-19 10:00 | NUR ---
PATIENT DISCHARGED FROM FACILITY. PATIENT GATHERED ALL PERSONAL BELONGINGS, DISCHARGE INSTRUCTIONS, AND FOLLOW UP INFORMATION. LEFT UNIT IN WHEELCHAIR AND WENT HOME VIA PRIVATE AUTO. NO SIGNS OF DISTRESS WHEN LEAVING FACILITY.
--- NOTE | 2019-04-19 11:47 | Discharge Summary ---
PRIMARY CARE PHYSICIAN: Dr. Jonna Null. FINAL DIAGNOSES: 1. Severe hyponatremia, secondary to hydrochlorothiazide, most likely and also dehydration. Sodium level was 119. 2. Urinary tract infection and gram-negative elisabeth with prostatitis, status post recent TURP. 3. Dehydration. 4. Chronic kidney disease, stage 3. SUMMARY: An 83-year-old male, who came in with generalized weakness, dehydration, and urinary tract infection. The patient was stable, however, sodium level was 119. BUN and creatinine are 15 and 1.6. Microbiology grows gram-negative elisabeth. The patient is otherwise, stable. Imaging CT abdomen and pelvis scan were done, show a large left indirect inguinal hernia containing loop of sigmoid colon without incarceration. There is extensive diverticulosis involving the entire colon. Diffuse atherosclerotic vascular calcification diseased. 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 The patient's repeated lab work much improved. Sodium level was 133, BUN and creatinine of 14 and 1.38. The patient is otherwise, stable. Vital signs are stable. The patient was discharged home today on Cipro 250 mg twice a day for 7 days. He will stop the metformin due to chronic kidney disease and also the hydrochlorothiazide due to the low sodium level. He will continue his other home medication. Blood pressure remained stable. The patient will go home today. Information sent to the patient's primary care physician, Dr. Jonna Null. MD DAMIR Polanco/EDWARD /[id number]
== END 2019-04-19 10:05 | disposition home or self-care (01) | DRG 690 ==
LOC: ER 14:46 → ERHOLD 18:05 → MED/SURG 20:42
PROVIDERS: ADMIT Internal Medicine; ATTEND Internal Medicine
DX: N30.00 Acute cystitis without hematuria (principal); E87.1 Hypo-osmolality and hyponatremia; E86.0 Dehydration; E78.5 Hyperlipidemia, unspecified; R33.9 Retention of urine, unspecified; Z90.49 Acquired absence of other specified parts of digestive tract; Z87.891 Personal history of nicotine dependence; Z82.49 Family history of ischemic heart disease and other diseases of the circulatory system; R53.1 Weakness; N41.9 Inflammatory disease of prostate, unspecified; N18.3 Chronic kidney disease, stage 3 (moderate); E11.22 Type 2 diabetes mellitus with diabetic chronic kidney disease; Z79.84 Long term (current) use of oral hypoglycemic drugs; T50.2X5A Adverse effect of carbonic-anhydrase inhibitors, benzothiadiazides and other diuretics, initial encounter; K40.90 Unilateral inguinal hernia, without obstruction or gangrene, not specified as recurrent; K57.30 Diverticulosis of large intestine without perforation or abscess without bleeding; B96.5 Pseudomonas (aeruginosa) (mallei) (pseudomallei) as the cause of diseases classified elsewhere
CPT/HCPCS: 36415; 71045; 74176; 80048; 80053; 81001; 82550; 82553; 82948; 83735; 84443; 84484; 85025; 85610; 85730; 87086; 87186; 93005; 99284; J0696; J2405; J7030; J7040

== ENCOUNTER 2022-08-03 14:02 | Emergency (ER) | payer OTHER ==
[~2022-08-03] VITALS: Ht 170.2 cm; Wt 68.9 kg
[~2022-08-03 14:02] MED LIST: AMLODIPINE BESYL5 MG PO; ATORVASTATIN CA20 MG PO; CIPRO500 MG PO; FLOMAX0.4 MG PO; HYDROCHLOROTH12.5 M1 PO; IFEREX 150150 MG PO; LACTULOSE20 GM/30 M PO; LISINOPRIL10 MG PO; METFORMIN HCL500 MG PO; POLYETHYLENE GL17 GM PO; SYNTHROID125 MCG PO; TRADJENTA5 MG PO
[2022-08-03] MEDS ORDERED: FUROSEMIDE40 MG PO (15:07)
[2022-08-03] MEDS ORDERED: NIFEDIPINE ER30 M1 PO (15:07)
== END 2022-08-03 15:33 | disposition home or self-care (01) ==
LOC: FSED 14:07
DX: R30.0 Dysuria (principal); N39.0 Urinary tract infection, site not specified; E11.65 Type 2 diabetes mellitus with hyperglycemia; F41.9 Anxiety disorder, unspecified; I10 Essential (primary) hypertension; E78.5 Hyperlipidemia, unspecified; E03.9 Hypothyroidism, unspecified; M10.9 Gout, unspecified; D64.9 Anemia, unspecified
CPT/HCPCS: 80053; 81003; 82553; 84484; 85025; 93005; 99283

== ENCOUNTER 2022-08-10 20:10 | Observation (INO) | payer MEDICARE, OTHER ==
[~2022-08-10] VITALS: Ht 165.1 cm; Wt 68.9 kg
[~2022-08-10 20:10] MED LIST changes: +FUROSEMIDE40 MG PO; +NIFEDIPINE ER30 M1 PO
[2022-08-10 21:11] LABS: BASOPHILS # (AUTO) 0.1 (0.0-0.1); EOSINOPHILS # (AUTO) 0.1 (0.0-0.4); EOSINOPHILS % 1.5 % (0.0-6.0); HEMATOCRIT 36.7 % (38.2-49.6); HEMOGLOBIN 11.5 g/dL (14.0-18.0); LYMPHOCYTES # (AUTO) 1.8 (1.0-3.2); LYMPHOCYTES % 24.9 % (18.0-39.1); MEAN CORPUSCULAR HEMOGLOBIN 29.1 pg (28-32); MEAN CORPUSCULAR HGB CONC 31.3 g/dL (31-35); MEAN CORPUSCULAR VOLUME 92.9 fL (81-99); MONOCYTES # (AUTO) 0.8 (0.2-0.8); MONOCYTES % 11.1 % (4.4-11.3); NEUTROPHILS # (AUTO) 4.4 (2.1-6.9); NEUTROPHILS % 61.4 % (38.7-80.0); PLATELET COUNT 374 x10e3/uL (140-360); RED BLOOD COUNT 3.95 x10e6/uL (4.3-5.7); RED CELL DISTRIBUTION WIDTH 14.4 % (11.7-14.4)
[2022-08-10 21:24] LABS: CLARITY,URINE HAZY (CLEAR); COLOR,URINE YELLOW (YELLOW); LEUKOCYTE ESTERASE ,URINE SMALL (NEGATIVE); NITRITE,URINE NEGATIVE (NEGATIVE); PROTEIN,URINE DIPSTICK 2+ (NEGATIVE)
[2022-08-10 21:25] LABS: KETONES,URINE NEGATIVE (NEGATIVE); URINE UROBILINOGEN 0.2 mg/dL (0.2 - 1)
[2022-08-10 21:27] LABS: ALBUMIN 3.5 g/dL (3.5-5.0); ALBUMIN/GLOBULIN RATIO 0.8 (0.8-2.0); ANION GAP 18.5 mmol/L (8-16); CALCIUM 9.3 mg/dL (8.4-10.2); CREATININE, SERUM 2.35 mg/dL (0.72-1.25); POTASSIUM 4.5 mmol/L (3.5-5.1)
[2022-08-10] MEDS ORDERED: SODIUM CHLORIDE 0.9% 1000ML 500 ML IV ONE (21:30)
[2022-08-10] MEDS ORDERED: ONDANSETRON HCL INJ 2MG/ML 2ML 2 MG/ML VIAL IV PRN (21:30)
[2022-08-10 21:37] LABS: BACTERIA,URINE MODERATE /HPF; RBC,URINE 0-5 /HPF (0-5)
[2022-08-10] MEDS ORDERED: SODIUM CHLORIDE 0.9% 500ML 500 ML ONE (22:08)
[2022-08-11] VITALS (7 sets, daily range): BP systolic 130–146; BP diastolic 65–88
[2022-08-11] MEDS ORDERED: CEFTRIAXONE 1 GM VIAL ONE (00:55)
[2022-08-11] MEDS ORDERED: LASIX40 MG PO (01:01)
[2022-08-11] MEDS ORDERED: ONDANSETRON HCL INJ 2MG/ML 2ML 2 MG/ML VIAL IV PRN (01:15)
[2022-08-11] MEDS: SODIUM CHLORIDE 0.9% 1000ML 1,000 ML IV SCH ×3 (01:36→23:02)
[2022-08-11] MEDS ORDERED: MAGNESIUM HYDROXIDE 30 ML UDC PO ONE (10:15)
[2022-08-11] MEDS: SENNA-S TABLET PO SCH ×2 (10:15→17:00)
[2022-08-11] MEDS ORDERED: BISACODYL 10 MG SUPP PR PRN (10:15)
[2022-08-11] MEDS ORDERED: MAGNESIUM HYDROXIDE 30 ML UDC PO PRN (10:15)
[2022-08-11] MEDS ORDERED: BISACODYL 10 MG SUPP PR ONE (10:15)
[2022-08-11] MEDS: NIFEDIPINE CR 30 MG TAB PO SCH (11:44)
[2022-08-11] MEDS: LEVOTHYROXINE SODIUM 125 MCG TAB PO SCH (11:45)
[2022-08-11] MEDS: TAMSULOSIN HCL 0.4 MG CAP PO SCH (17:00)
[2022-08-11] MEDS ORDERED: ATORVASTATIN 20 MG TAB PO SCH (21:00)
[2022-08-12 00:40] VITALS: BP 135/59
[2022-08-12 04:00] VITALS: BP 133/67
[2022-08-12] MEDS: LEVOTHYROXINE SODIUM 125 MCG TAB PO SCH (06:32)
[2022-08-12] MEDS: SODIUM CHLORIDE 0.9% 1000ML 1,000 ML IV SCH (07:17)
[2022-08-12 07:35] LABS: BASOPHILS # (AUTO) 0.1 (0.0-0.1); BASOPHILS % 0.9 % (0.0-1.0); EOSINOPHILS # (AUTO) 0.1 (0.0-0.4); EOSINOPHILS % 1.4 % (0.0-6.0); HEMATOCRIT 30.3 % (38.2-49.6); HEMOGLOBIN 9.8 g/dL (14.0-18.0); LYMPHOCYTES # (AUTO) 1.2 (1.0-3.2); LYMPHOCYTES % 16.5 % (18.0-39.1); MEAN CORPUSCULAR HGB CONC 32.3 g/dL (31-35); MEAN CORPUSCULAR VOLUME 89.6 fL (81-99); MONOCYTES % 14.6 % (4.4-11.3); NEUTROPHILS # (AUTO) 4.6 (2.1-6.9); NEUTROPHILS % 66.5 % (38.7-80.0); PLATELET COUNT 294 x10e3/uL (140-360); RED BLOOD COUNT 3.38 x10e6/uL (4.3-5.7); RED CELL DISTRIBUTION WIDTH 14.7 % (11.7-14.4)
[2022-08-12 08:11] LABS: ALBUMIN 2.8 g/dL (3.5-5.0); ALBUMIN/GLOBULIN RATIO 0.8 (0.8-2.0); ANION GAP 13.9 mmol/L (8-16); CALCIUM 8.3 mg/dL (8.4-10.2); CREATININE, SERUM 1.59 mg/dL (0.72-1.25); POTASSIUM 3.9 mmol/L (3.5-5.1)
[2022-08-12 09:00] VITALS: BP 133/67
[2022-08-12 09:33] VITALS: BP 152/70
[2022-08-12] MEDS: NIFEDIPINE CR 30 MG TAB PO SCH (09:38)
[2022-08-12] MEDS: SENNA-S TABLET PO SCH (09:38)
[2022-08-12] MEDS: TAMSULOSIN HCL 0.4 MG CAP PO SCH (09:38)
== END 2022-08-12 10:55 | disposition home or self-care (01) ==
LOC: ER 20:15 → ERHOLD 08-11 01:06 → MED/SURG 08-11 02:44
PROVIDERS: ADMIT Internal Medicine; ATTEND Internal Medicine
DX: N41.9 Inflammatory disease of prostate, unspecified (principal); N17.0 Acute kidney failure with tubular necrosis; N40.1 Benign prostatic hyperplasia with lower urinary tract symptoms; R33.8 Other retention of urine; I12.9 Hypertensive chronic kidney disease with stage 1 through stage 4 chronic kidney disease, or unspecified chronic kidney disease; N18.30 Chronic kidney disease, stage 3 unspecified; K59.00 Constipation, unspecified; D64.9 Anemia, unspecified; Z20.822 Contact with and (suspected) exposure to COVID-19; E87.1 Hypo-osmolality and hyponatremia; E86.0 Dehydration
CPT/HCPCS: 36415 ×2; 74176; 80053 ×2; 81001; 83690; 84484; 85025 ×2; 93005; 96360; 96361 ×2; 99284; G0378 ×2; J0696 ×2; J7030 ×2; J7040; U0002

== ENCOUNTER 2022-12-01 10:58 | Emergency (ER) | payer MEDICARE ==
[~2022-12-01] VITALS: Ht 170.2 cm; Wt 71.2 kg
[~2022-12-01 10:58] MED LIST changes: +LASIX40 MG PO
[2022-12-01] MEDS ORDERED: CEFTRIAXONE 1 GM VIAL ONE (13:34)
[2022-12-01 13:44] VITALS: BP 164/81
[2022-12-01] MEDS ORDERED: CEFDINIR300 MG PO (13:48)
[2022-12-01] MEDS ORDERED: AZITHROMYCIN250 MG PO (13:48)
== END 2022-12-01 13:53 | disposition home or self-care (01) ==
LOC: FSED 11:01
DX: R06.02 Shortness of breath (principal); J18.9 Pneumonia, unspecified organism; N39.0 Urinary tract infection, site not specified; B96.89 Other specified bacterial agents as the cause of diseases classified elsewhere; I10 Essential (primary) hypertension; E11.65 Type 2 diabetes mellitus with hyperglycemia; E78.5 Hyperlipidemia, unspecified; E03.9 Hypothyroidism, unspecified; D64.9 Anemia, unspecified; Z85.6 Personal history of leukemia
CPT/HCPCS: 71046; 80048; 80076; 81003; 82553; 83880; 84484; 85025; 85379; 87086; 93005; 99284; J0696; 87186

== ENCOUNTER 2022-12-22 11:10 | Emergency (ER) | payer MEDICARE ==
[~2022-12-22] VITALS: Ht 170.2 cm; Wt 71.2 kg
[~2022-12-22 11:10] MED LIST changes: +AZITHROMYCIN250 MG PO; +CEFDINIR300 MG PO
[2022-12-22 11:49] LABS: BASOPHILS % 0.7 % (0.0-1.0); EOSINOPHILS % 0.4 % (0.0-6.0); HEMATOCRIT 33.8 % (38.2-49.6); HEMOGLOBIN 11.3 g/dL (14.0-18.0); LYMPHOCYTES # (AUTO) 1.1 (1.0-3.2); LYMPHOCYTES % 19.6 % (18.0-39.1); MEAN CORPUSCULAR HEMOGLOBIN 28.6 pg (28-32); MEAN CORPUSCULAR HGB CONC 33.4 g/dL (31-35); MEAN CORPUSCULAR VOLUME 85.6 fL (81-99); MONOCYTES # (AUTO) 0.5 (0.2-0.8); NEUTROPHILS # (AUTO) 3.9 (2.1-6.9); NEUTROPHILS % 70.1 % (38.7-80.0); PLATELET COUNT 303 x10e3/uL (140-360); RED BLOOD COUNT 3.95 x10e6/uL (4.3-5.7); RED CELL DISTRIBUTION WIDTH 14.8 % (11.7-14.4)
[2022-12-22 11:57] LABS: CLARITY,URINE CLEAR (CLEAR); COLOR,URINE YELLOW (YELLOW); KETONES,URINE NEGATIVE (NEGATIVE); LEUKOCYTE ESTERASE ,URINE TRACE (NEGATIVE); NITRITE,URINE NEGATIVE (NEGATIVE); PROTEIN,URINE DIPSTICK >=300 (NEGATIVE); URINE UROBILINOGEN 0.2 mg/dL (0.2 - 1)
[2022-12-22 12:06] LABS: ALBUMIN 3.2 g/dL (3.5-5.0); ALBUMIN/GLOBULIN RATIO 0.7 (0.8-2.0); ANION GAP 17.4 mmol/L (8-16); CALCIUM 8.7 mg/dL (8.4-10.2); CREATININE, SERUM 1.94 mg/dL (0.72-1.25); POTASSIUM 3.4 mmol/L (3.5-5.1)
[2022-12-22 12:07] LABS: BACTERIA,URINE MODERATE /HPF; EPITHELIAL CELLS,URINE FEW /LPF; RBC,URINE 0-5 /HPF (0-5)
[2022-12-22] MEDS ORDERED: CEPHALEXIN500 MG PO (13:39)
== END 2022-12-22 15:09 | disposition home or self-care (01) ==
LOC: ER 11:16
DX: I12.9 Hypertensive chronic kidney disease with stage 1 through stage 4 chronic kidney disease, or unspecified chronic kidney disease (principal); E11.22 Type 2 diabetes mellitus with diabetic chronic kidney disease; N18.9 Chronic kidney disease, unspecified; N39.0 Urinary tract infection, site not specified; E78.5 Hyperlipidemia, unspecified; E03.9 Hypothyroidism, unspecified; D64.9 Anemia, unspecified
CPT/HCPCS: 36415; 80053; 81001; 85025; 87086; 87186; 99282